=== PATIENT | male | born 1945 | race African-American/Black ===

== ENCOUNTER 2016-08-02 01:49 | Emergency (ER) | payer MEDICARE, MEDICAID ==
[~2016-08-02] VITALS: Ht 172.7 cm; Wt 56.0 kg
[~2016-08-02 01:49] MED LIST: NIFE60TA58 PO
[2016-08-02 01:54] VITALS: BP 165/112; PULSE 106; RESP 18; TEMP 98.6; O2SAT 99
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
[2016-08-02] MEDS ORDERED: ACETAMINOPHEN 325 MG TAB PO ONE (05:30)
[2016-08-02 06:22] VITALS: BP 140/83; TEMP 97.5
--- NOTE | 2016-08-02 07:51 | EKG ---
Date Performed: 08/02/2016 Time Performed: 05:34:11 PTAGE: 71 years EKG: SINUS TACHYCARDIA WITH SHORT OH INTERVAL ABNORMAL RHYTHM ECG NO PREVIOUS TRACING DOCTOR: Lee Sapp Interpretating Date/Time 08/02/2016 07:50:09
== END 2016-08-02 06:56 | disposition home or self-care (01) ==
LOC: NEPC 01:49 → NEDAMB 06:56
DX: F10.129 Alcohol abuse with intoxication, unspecified (principal); F17.200 Nicotine dependence, unspecified, uncomplicated; R00.0 Tachycardia, unspecified
CPT/HCPCS: 93005; 99283

== ENCOUNTER 2016-09-20 05:04 | Inpatient (IN) | payer MEDICARE, MEDICAID ==
[2016-09-20] VITALS (8 sets, daily range): BP systolic 123–196; BP diastolic 72–109; PULSE 72–95; RESP 18–23; TEMP 97.7–98.1; O2SAT 99–100
[~2016-09-20] VITALS: Ht 170.2 cm; Wt 53.6 kg
[2016-09-20] MEDS ORDERED: water pill (05:28)
[2016-09-20] MEDS ORDERED: TIZA4TAB PO (05:28)
--- NOTE | 2016-09-20 05:45 | PD ---
HPI Chief Complaint: Respiratory Symptoms Time Seen by Provider: 05:45 Travel History International Travel<30 days: No Contact w/Intl Traveler<30days: No Traveled to known affect area: No History of Present Illness HPI The patient is a 71 year old male who presents to the [facility] emergency department with a history of being brought in by ambulance services related to reports of shortness of breath. He reports that he does have chronic dyspnea on exertion, however it was worse this evening. The patient additionally reports that he has chronic neck pain and chronic abdominal pain. The patient port that he is in pain management for this. He reports that his abdominal pain is related to prior hernia repairs done last year. The patient reports that the pain has been worse recently. The patient reports that the pain is present in bilateral lower quadrants of the abdomen in the suprapubic area. The patient reports that over the last week he said nausea and vomiting associated with this. He reports that he has been vomiting 2-3 times per day. He denies having any diarrhea. He reports that he last moved his bowels earlier today. He denies having any blood in his stool or black or tarry stools. He reports that his neck pain is related to degenerative disc disease. He reports that he is normally on Lortab 10 for this, however he is currently out. He is unable to explain why he is out of the medication. The patient reports that he does have a history of COPD. The patient continues to smoke a pack of cigarettes per day. He reports that he drinks a half of a quart of liquor daily to help with his chronic neck and abdominal pain. On review of systems, the patient denies any recent worsening cough or congestion, fevers neck pain, chest pain, or neurologic symptoms. The patient incidentally on review of systems also reports that he has difficulty urinating that is chronic. He reports having hesitancy. The patient's primary care physician is Dr. Duncan. [facility] Past Medical History Narrative Medical The patient's past medical history is significant for hypertension, hyperlipidemia, COPD, tobacco abuse, alcohol abuse, history of chronic neck pain , history of chronic abdominal pain. Arthritis: No Asthma: No Autoimmune Disease: No Blood Disorders: No Anxiety: No Depression: No Cancer: No Cardiovascular Problems: Yes High Cholesterol: Yes Chemotherapy: No Chest Pain: No Congestive Heart Failure: No COPD: No Cerebrovascular Accident: No Diabetes: No Diminished Hearing: No Endocrine: No Gastrointestinal Disorders: Yes GERD: Yes Genitourinary: Yes Headaches: No Hiatal Hernia: No Hypertension: Yes Immune Disorder: No Inguinal Hernia: Yes Implanted Vascular Access Dvce: No Kidney Stones: No Musculoskeletal: No Neurologic: Yes Psychiatric: No Reproductive: No Respiratory: No Immunizations Current: No Migraines: No Radiation Therapy: No Renal Failure: No Seizures: No Sickle Cell Disease: No Sleep Apnea: No Thyroid Disease: No Ulcer: No Past Surgical History Narrative Surgical The patient's past surgical history is significant for vocal cord growth removal , prostate biopsy, hernia repair. Abdominal Surgery: Yes (HENIA REPAIR) AICD: No Arteriovenous Shunt: No Cardiac Surgery: No Ear Surgery: No Endocrine Surgery: No Eye Surgery: No Genitourinary Surgery: Yes (PROSTATE BIOPSY) Gynecologic Surgery: No Insulin Pump: No Joint Replacement: No Neurologic Surgery: No Oral Surgery: No Pacemaker: No Thoracic Surgery: No Other Surgery: Yes (GROWTH REMOVED OFF VOCAL CORD) Social History Alcohol Use: Yes (1/4 quart of liquor per day) Tobacco Use: Yes (one pack per day) Substance Use: No Allergies-Medications (Allergen,Severity, Reaction): Coded Allergies: No Known Allergies (Verified , 09/20/16) Reported Meds & Prescriptions Reported Meds & Active Scripts Active Reported [water pill] Tizanidine (Tizanidine HCl) 4 Mg Tab 4 Mg PO HS PRN Nifedipine ER 24 HR (Nifedipine) 60 Mg Tab 60 Mg PO BID Review of Systems Except as stated in HPI: all other systems reviewed are Neg General / Constitutional: No: Fever Eyes: No: Visual changes HENT: Positive: Congestion, Neck Pain (chronic neck pain), No: Headaches, Neck Stiffness Cardiovascular: Positive: Dyspnea on exertion, No: Chest Pain or Discomfort Respiratory: Positive: Cough, Shortness of Breath Gastrointestinal: Positive: Nausea, Vomiting, Diarrhea, Abdominal Pain ( chronic abdominal pain) Genitourinary: Positive: Hesitancy, No: Dysuria Musculoskeletal: No: Pain Skin: No Rash Neurologic: No: Weakness, Focal Abnormalities, Change in Mentation, Slurred Speech Psychiatric: No: Depression Endocrine: No: Polydipsia Hematologic/Lymphatic: No: Easy Bruising Physical Exam Narrative General: The patient is a well-developed thin appearing male in no acute distress. Head and Neck exam: Head is normocephalic atraumatic. Eyes: EOMI, pupils are equal round and reactive to light. Nose: Midline septum with pink mucous membranes Mouth: Dentition unremarkable. Moist mucus membranes. Posterior oropharynx is not erythematous. No tonsillar hypertrophy. Uvula midline. Airway patent. Neck: No palpable lymphadenopathy. No nuchal rigidity. No thyromegaly. No spinous process tenderness to palpation. No step-off or crepitus. No erythema or ecchymosis. Cardiovascular: Regular rate and rhythm without murmurs, gallops, or rubs. Lungs: Clear to auscultation bilaterally. No wheezes, rhonchi, or rales. Abdomen: Soft, with tenderness on palpation overlying the suprapubic area and bilateral lower quadrants of the abdomen. No guarding, rebound, or rigidity. No tenderness on palpation of McBurney's point. Negative Kirkpatrick's sign. Normal bowel sounds are audible. Extremities: No clubbing, cyanosis, or edema. 2+ pulses in all 4 extremities. No calf tenderness on palpation. Back: No costovertebral angle tenderness to palpation. Neurologic Exam: Grossly nonfocal. Skin Exam: No rash noted. Intact skin that is warm and dry. Data Data Last Documented VS Vital Signs Date Time Temp Pulse Resp B/P Pulse Ox O2 Delivery O2 Flow Rate FiO2 09/20/16 06:27 100 Nasal Cannula 2 09/20/16 05:08 97.9 95 23 161/96 Orders Complete Blood Count With Diff (09/20/16 06:07) Comprehensive Metabolic Panel (09/20/16 06:07) B-Type Natriuretic Peptide (09/20/16 06:07) Act Partial Throm Time (Ptt) (09/20/16 06:07) Prothrombin Time / Inr (Pt) (09/20/16 06:07) Magnesium (Mg) (09/20/16 06:07) Ckmb (Isoenzyme) Profile (09/20/16 06:07) Troponin I (09/20/16 06:07) Arterial Blood Gas (Abg) (09/20/16 06:07) Urinalysis - C+S If Indicated (09/20/16 06:07) Iv Access Insert/Monitor (09/20/16 06:07) Electrocardiogram (09/20/16 06:07) Ecg Monitoring (09/20/16 06:07) Oximetry (09/20/16 06:07) Oxygen Administration (09/20/16 06:07) Chest, Single Ap (09/20/16 06:07) Sodium Chloride 0.9% Flush (Ns Flush) (09/20/16 06:15) Albuterol-Ipratropium Neb (Duoneb Neb) (09/20/16 06:15) Ct Abd/Pel W Iv Contrast(Rout) (09/20/16 07:00) CKMB (09/20/16 06:20) CKMB% (09/20/16 06:20) Sodium Chlorid 0.9% 500 Ml Inj (Ns 500 M (09/20/16 07:30) Morphine Inj (Morphine Inj) (09/20/16 07:30) Ondansetron Inj (Zofran Inj) (09/20/16 07:30) Thiamine Inj (Thiamine Inj) (09/20/16 07:30) Potassium Chloride (Kcl) (09/20/16 07:30) Labs Laboratory Tests Test 09/20/16 09/20/16 06:20 06:30 White Blood Count 6.2 TH/MM3 Red Blood Count 2.56 MIL/MM3 Hemoglobin 8.8 GM/DL Hematocrit 25.7 % Mean Corpuscular Volume 100.2 FL Mean Corpuscular Hemoglobin 34.4 PG Mean Corpuscular Hemoglobin 34.3 % Concent Red Cell Distribution Width 15.6 % Platelet Count 112 TH/MM3 Mean Platelet Volume 9.3 FL Neutrophils (%) (Auto) 47.6 % Lymphocytes (%) (Auto) 38.6 % Monocytes (%) (Auto) 11.3 % Eosinophils (%) (Auto) 1.7 % Basophils (%) (Auto) 0.8 % Neutrophils # (Auto) 2.9 TH/MM3 Lymphocytes # (Auto) 2.4 TH/MM3 Monocytes # (Auto) 0.7 TH/MM3 Eosinophils # (Auto) 0.1 TH/MM3 Basophils # (Auto) 0.0 TH/MM3 CBC Comment AUTO DIFF Differential Comment AUTO DIFF CONFIRMED Prothrombin Time 11.6 SEC Prothromb Time International 1.0 RATIO Ratio Activated Partial 24.0 SEC Thromboplast Time Urine Color YELLOW Urine Turbidity CLEAR Urine pH 6.0 Urine Specific [place] 1.009 Urine Protein TRACE mg/dL Urine Glucose (UA) NEG mg/dL Urine Ketones NEG mg/dL Urine Occult Blood NEG Urine Nitrite NEG Urine Bilirubin NEG Urine Urobilinogen LESS THAN 2.0 MG/DL Urine Leukocyte Esterase NEG Urine RBC LESS THAN 1 /hpf Urine WBC 1 /hpf Microscopic Urinalysis Comment CULT NOT INDICATED Sodium Level 147 MEQ/L Potassium Level 2.9 MEQ/L Chloride Level 117 MEQ/L Carbon Dioxide Level 20.8 MEQ/L Anion Gap 9 MEQ/L Blood Urea Nitrogen 13 MG/DL Creatinine 1.07 MG/DL Estimat Glomerular Filtration 83 ML/MIN Rate Random Glucose 62 MG/DL Calcium Level 6.6 MG/DL Protein Corrected Calcium 7.7 MG/DL Magnesium Level 0.8 MG/DL Total Bilirubin 0.2 MG/DL Aspartate Amino Transf 69 U/L (AST/SGOT) Alanine Aminotransferase 32 U/L (ALT/SGPT) Alkaline Phosphatase 61 U/L Total Creatine Kinase 107 U/L Creatine Kinase MB LESS THAN 0.5 NG/ML Troponin I LESS THAN 0.02 NG/ML B-Type Natriuretic Peptide 8 PG/ML Total Protein 5.0 GM/DL Albumin 2.3 GM/DL Blood Gas Puncture Site RT RADIAL Blood Gas Patient Temperature 98.6 Blood Gas HCO3 23 mmol/L Blood Gas Base Excess -1.2 mmol/L Blood Gas Oxygen Saturation 94 % Arterial Blood pH 7.43 Arterial Blood Partial 35 mmHg Pressure CO2 Arterial Blood Partial 98 mmHG Pressure O2 Arterial Blood Oxygen Content 13.4 Vol % Arterial Blood 3.8 % Carboxyhemoglobin Arterial Blood Methemoglobin 0.5 % Blood Gas Hemoglobin 10.1 G/DL Oxygen Delivery Device ROOM AIR Blood Gas Inspired Oxygen 21 % [facility] Medical Decision Making Medical Screen Exam Complete: Yes Emergency Medical Condition: Yes Medical Record Reviewed: Yes Interpretation(s) Last Impressions Chest X-Ray 09/20/16 0607 Signed Impressions: Service Date/Time: Tuesday, September 20, 2016 06:16 - CONCLUSION: Emphysematous changes of the lungs. Otherwise negative exam. Elizabeth Cruz MD Differential Diagnosis COPD exacerbation, versus pneumonia, versus diverticulitis, versus urinary tract infection, versus prostatitis, versus benign prostatic hypertrophy, versus exacerbation of chronic pain. Narrative Course During the course of the patients emergency department visit, the patients history, examination, and differential diagnosis were reviewed with the patient. The patient had IV access obtained and blood work sent for analysis. The patient was placed on a satellite project site monitor with oximetry and blood pressure monitoring. An ECG was done on arrival. The patient's ECG shows a sinus rhythm , heart rate of 86, no acute ST segment elevation or depression, left axis deviation is noted, QRS duration 95 ms, QTC 401 ms. An ABG was ordered. The patient was initially provided a DuoNeb 1. The patient was given morphine for pain, Zofran for nausea, normal saline IV fluids, thiamine 100 mg IV. The patients laboratory studies were reviewed and remarkable for white count of 6.2, hemoglobin 8.8, platelets 112 with 11.3 monocytes, ABG reveals a pH of 7.43, PCO2 35, PO2 98, carboxyhemoglobin 3.8. Radiology studies were reviewed and remarkable for a chest x-ray that shows emphysematous changes of the lung, otherwise unremarkable. The patient's electrolyte panel, urinalysis, and CT scan of the abdomen and pelvis are pending at the conclusion of my shift. The patient's case was checked out to the oncoming emergency physician to disposition the patient based on the conclusion of this workup. Diagnosis Primary Impression: Shortness of breath Additional Impression: Abdominal pain Qualified Code: R10.30 - Lower abdominal pain Twila Fox MD Sep 20, 2016 05:45
[2016-09-20] MEDS ORDERED: SODIUM CHLORIDE 0.9% FLUSH 10 ML FLUSH IVF PRN (06:15)
[2016-09-20] MEDS ORDERED: RESP: ALBUTEROL 2.5 MG/IPRATROPIUM 0.5 MG NEB (SCH) INH ONE (06:15)
[2016-09-20 06:48] LABS: BLOOD GAS BASE EXCESS -1.2 mmol/L (-2-2); BLOOD GAS CARBOXYHEMOGLOBIN 3.8 % (0-4); BLOOD GAS HCO3 23 mmol/L (22-26); BLOOD GAS METHEMOGLOBIN 0.5 % (0-2); BLOOD GAS O2 HGB SATURATION 94 % (90-100); BLOOD GAS OXYGEN CONTENT 13.4 Vol % (12.0-20.0); BLOOD GAS PCO2 35 mmHg (38-42); BLOOD GAS PO2 98 mmHG (61-120); BLOOD GAS TOTAL HGB 10.1 G/DL (12.0-16.0); CRITICAL VALUE NO; DRAW SITE RT RADIAL; FIO2 21 %; NUMBER OF ARTERIAL PUNCTURES 1; OXYGEN DEVICE ROOM AIR; STAT YES; TEMP CORR TO 98.6; ULNAR PULSE PRESENT
[2016-09-20 06:52] LABS: AUTOMATED NEUTROPHIL # 2.9 TH/MM3 (1.8-7.7); BASOPHIL % 0.8 % (0.0-2.0); EOSINOPHIL # 0.1 TH/MM3 (0-0.4); EOSINOPHIL % 1.7 % (0.0-4.0); HEMATOCRIT 25.7 % (39.0-51.0); LYMPH % 38.6 % (9.0-44.0); LYMPHOCYTE # 2.4 TH/MM3 (1.0-4.8); MEAN CELL VOLUME 100.2 FL (80.0-100.0); MEAN CORPUSCULAR HEMOGLOBIN 34.4 PG (27.0-34.0); MEAN CORPUSCULAR HGB CONC 34.3 % (32.0-36.0); MONO % 11.3 % (0.0-8.0); NEUT % 47.6 % (16.0-70.0); PLATELET COUNT 112 TH/MM3 (150-450); RED BLOOD COUNT 2.56 MIL/MM3 (4.50-5.90); RED CELL DISTRIBUTION WIDTH 15.6 % (11.6-17.2); WHITE BLOOD COUNT 6.2 TH/MM3 (4.0-11.0)
[2016-09-20 06:55] LABS: HEMO FLAGS AUTO DIFF
[2016-09-20 06:59] LABS: PROTHROMBIN TIME - PATIENT 11.6 SEC (9.8-11.6)
--- NOTE | 2016-09-20 06:59 | RADRPT ---
EXAM DATE/TIME: 09/20/2016 06:16 [facility] COMPARISON: CHEST SINGLE AP, December 29, 2015, 12:52. INDICATIONS : Short of breath. MEDICAL HISTORY : None. SURGICAL HISTORY : None. ENCOUNTER: Initial ACUITY: 1 day PAIN SCORE: 0/10 LOCATION: Bilateral chest FINDINGS: Single upright view of the chest is performed. The lungs are hyperinflated but clear. Heart size is n ormal. Pulmonary vasculature is normal. Osseous structures are grossly unremarkable. CONCLUSION: Emphysematous changes of the lungs. Otherwise negative exam. Elizabeth Cruz MD on September 20, 2016 at 6:56 Board Certified Radiologist. This report was verified electronically.
[2016-09-20 07:02] LABS: BLOOD, URINE NEG (NEG); GLUCOSE,URINE NEG (NEG); KETONE, URINE NEG (NEG); NITRITE,URINE NEG (NEG); URINE COLOR YELLOW (YELLW/STRAW)
[2016-09-20 07:04] LABS: COMMENT (UR) CULT NOT INDICATED; CULTURE IF INDICATED CULT NOT INDICATED
[2016-09-20 07:19] LABS: ANION GAP 9 MEQ/L (5-15); AST (GOT) 69 U/L (15-37); BICARBONATE 20.8 MEQ/L (21.0-32.0); BLOOD UREA NITROGEN 13 MG/DL (7-18); CHLORIDE 117 MEQ/L (98-107); GLOMERULAR FILTRATION RATE 83 ML/MIN (>89); MAGNESIUM 0.8 MG/DL (1.5-2.5); SODIUM (NA) 147 MEQ/L (136-145)
[2016-09-20 07:23] LABS: ALKALINE PHOSPHATASE 61 U/L (45-117); ALT (GPT) 32 U/L (12-78); CALCIUM-PROTEIN CORRECTED 7.7 MG/DL (8.5-10.1); CREATINE KINASE 107 U/L (39-308); TOTAL BILIRUBIN ADULT 0.2 MG/DL (0.2-1.0)
[2016-09-20 07:26] LABS: POTASSIUM 2.9 MEQ/L (3.5-5.1)
[2016-09-20] MEDS ORDERED: POTASSIUM CHLORIDE 20 MEQ CONTROLLED RELEASE TAB PO ONE (07:30)
[2016-09-20] MEDS ORDERED: SODIUM CHLORID 0.9% 500 ML INJ 500 ML IV ONE (07:30)
[2016-09-20] MEDS ORDERED: MORPHINE SULFATE 4 MG/ML INJ IV PUSH ONE (07:30)
[2016-09-20] MEDS ORDERED: THIAMINE INJ 100 MG in SODIUM CHLORIDE 0.9% INJ 100 ML IV ONE (07:30)
[2016-09-20] MEDS ORDERED: ONDANSETRON HCL 4 MG/2 ML VIAL IV PUSH ONE (07:30)
[2016-09-20 07:40] LABS: CKMB LESS THAN 0.5 NG/ML (0.5-3.6)
[2016-09-20 07:59] LABS: SCAN/DIFF AUTO DIFF CONFIRMED
[2016-09-20] MEDS ORDERED: SODIUM CHLOR 0.9% 1000 ML INJ 1,000 ML IV ONE (08:45)
--- NOTE | 2016-09-20 09:04 | EKG ---
Date Performed: 09/20/2016 Time Performed: 05:11:45 PTAGE: 71 years EKG: Sinus rhythm MARKED LEFT AXIS DEVIATION ABNORMAL ECG NO PREVIOUS TRACING DOCTOR: Lorenzo Sanchez Interpretating Date/Time 09/20/2016 09:02:44
[2016-09-20] MEDS ORDERED: IOHEXOL 350 MG/ML 10 ML VIAL (for RAD DIAG) IV ONE (09:38)
--- NOTE | 2016-09-20 09:55 | RADRPT ---
EXAM DATE/TIME: 09/20/2016 09:12 [facility] COMPARISON: CT ABDOMEN & PELVIS W CONTRAST, October 29, 2014, 22:18. INDICATIONS : Bilateral lower quadrant and suprapubic pain, difficulty urinating. IV CONTRAST: 85 cc Omnipaque 350 (iohexol) IV ORAL CONTRAST: No oral contrast ingested. RADIATION DOSE: 9.96 CTDIvol (mGy) MEDICAL HISTORY : Hypertension. Hernia, umbilical. Gastroesophageal reflux disease.Liver disease. SURGICAL HISTORY : Umbilical hernia repair. ENCOUNTER: Initial ACUITY: 1 month PAIN SCALE: 5/10 LOCATION: Bilateral lower quadrant TECHNIQUE: Volumetric scanning of the abdomen and pelvis was performed. Using automated exposure control and ad justment of the mA and/or kV according to patient size, radiation dose was kept as low as reasonably achievable to obtain optimal diagnostic quality images. DICOM format image data is available electro nically for review and comparison. FINDINGS: The lung base is are clear. There is no pericardial effusion. The liver, spleen, pancreas and adrenals are unremarkable. There are small calculi in the right kidney. There is an 1 cm cyst in the left kidney. There is no evidence for polyarthritis. Moderate vascular calcifications are noted There are mild laboratory changes around the cecum and descending colon with some bowel wall thickeni ng the nonspecific fashion. Diverticuli are present in the sigmoid colon without diverticulitis Hernia repair repair is seen in the right inguinal region There is no free fluid. Prominent prostate is evident. Review of bone windows reveals only degenerative changes. CONCLUSION: 1. Minimal bowel wall thickening and subtle inflammatory changes descending colon 2. There is no diverticulitis 3. Bilateral renal stones without hydronephrosis or pyelonephritis. Jean Ko MD FACR on September 20, 2016 at 9:49 Board Certified Radiologist. This report was verified electronically.
--- NOTE | 2016-09-20 10:06 | PD ---
Physical Exam Date Seen by Provider: Sep 20, 2016 Time Seen by Provider: 10:03 Narrative Patient was signed out to me by the previous ER physician for failure to thrive , abdominal pain. Please refer to her history and physical for further details. Blood test results were suggestive of hyponatremic dehydration and anemia. His sodium and potassium was tried to be corrected. Patient also has low calcium and magnesium which will be replaced. There was a CT scan of his abdomen ordered since he was complaining of abdominal pain. The report just came back and shows some small bowel thickening but otherwise negative. Patient will be admitted for dehydration, failure to thrive. Awaiting for the hospitalist to call back. Data Data Last Documented VS Vital Signs Date Time Temp Pulse Resp B/P Pulse Ox O2 Delivery O2 Flow Rate FiO2 09/20/16 06:27 100 Nasal Cannula 2 09/20/16 05:08 97.9 95 23 161/96 Orders Complete Blood Count With Diff (09/20/16 06:07) Comprehensive Metabolic Panel (09/20/16 06:07) B-Type Natriuretic Peptide (09/20/16 06:07) Act Partial Throm Time (Ptt) (09/20/16 06:07) Prothrombin Time / Inr (Pt) (09/20/16 06:07) Magnesium (Mg) (09/20/16 06:07) Ckmb (Isoenzyme) Profile (09/20/16 06:07) Troponin I (09/20/16 06:07) Arterial Blood Gas (Abg) (09/20/16 06:07) Urinalysis - C+S If Indicated (09/20/16 06:07) Iv Access Insert/Monitor (09/20/16 06:07) Electrocardiogram (09/20/16 06:07) Ecg Monitoring (09/20/16 06:07) Oximetry (09/20/16 06:07) Oxygen Administration (09/20/16 06:07) Chest, Single Ap (09/20/16 06:07) Sodium Chloride 0.9% Flush (Ns Flush) (09/20/16 06:15) Albuterol-Ipratropium Neb (Duoneb Neb) (09/20/16 06:15) Ct Abd/Pel W Iv Contrast(Rout) (09/20/16 07:00) CKMB (09/20/16 06:20) CKMB% (09/20/16 06:20) Sodium Chlorid 0.9% 500 Ml Inj (Ns 500 M (09/20/16 07:30) Morphine Inj (Morphine Inj) (09/20/16 07:30) Ondansetron Inj (Zofran Inj) (09/20/16 07:30) Thiamine Inj (Thiamine Inj) (09/20/16 07:30) Potassium Chloride (Kcl) (09/20/16 07:30) Sodium Chlor 0.9% 1000 Ml Inj (Ns 1000 M (09/20/16 08:45) Iohexol 350 Inj (Omnipaque 350 Inj) (09/20/16 09:38) Calcium Chloride Inj (Calcium Chloride I (09/20/16 10:15) Magnesium Sulfate 1 Gm Premix (Magnesium (09/20/16 10:15) Admit Order (Ed Use Only) (09/20/16 10:39) Blood Glucose (09/20/16 10:39) Vital Signs (Adult) MARGOTH.Q4H (09/20/16 10:36) Resp Oxygen [place] C Titrat 1-4 L (09/20/16 ) Basic Metabolic Panel (Bmp) (09/20/16 10:36) Occult Blood (Hemoccult) Stool (09/20/16 10:36) Dext 5%-Nacl 0.9% 1000 Ml Inj (D5w-Ns 10 (09/20/16 10:45) Complete Blood Count With Diff (09/21/16 06:00) Basic Metabolic Panel (Bmp) (09/21/16 06:00) Iron/Tibc Profile (09/20/16 10:36) Ferritin (09/20/16 10:36) Vitamin B12 (09/20/16 10:36) Folate, Serum (09/20/16 10:36) Albuterol-Ipratropium Neb (Duoneb Neb) (09/20/16 10:45) Labs Laboratory Tests Test 09/20/16 09/20/16 06:20 06:30 White Blood Count 6.2 TH/MM3 Red Blood Count 2.56 MIL/MM3 Hemoglobin 8.8 GM/DL Hematocrit 25.7 % Mean Corpuscular Volume 100.2 FL Mean Corpuscular Hemoglobin 34.4 PG Mean Corpuscular Hemoglobin 34.3 % Concent Red Cell Distribution Width 15.6 % Platelet Count 112 TH/MM3 Mean Platelet Volume 9.3 FL Neutrophils (%) (Auto) 47.6 % Lymphocytes (%) (Auto) 38.6 % Monocytes (%) (Auto) 11.3 % Eosinophils (%) (Auto) 1.7 % Basophils (%) (Auto) 0.8 % Neutrophils # (Auto) 2.9 TH/MM3 Lymphocytes # (Auto) 2.4 TH/MM3 Monocytes # (Auto) 0.7 TH/MM3 Eosinophils # (Auto) 0.1 TH/MM3 Basophils # (Auto) 0.0 TH/MM3 CBC Comment AUTO DIFF Differential Comment AUTO DIFF CONFIRMED Prothrombin Time 11.6 SEC Prothromb Time International 1.0 RATIO Ratio Activated Partial 24.0 SEC Thromboplast Time Urine Color YELLOW Urine Turbidity CLEAR Urine pH 6.0 Urine Specific [place] 1.009 Urine Protein TRACE mg/dL Urine Glucose (UA) NEG mg/dL Urine Ketones NEG mg/dL Urine Occult Blood NEG Urine Nitrite NEG Urine Bilirubin NEG Urine Urobilinogen LESS THAN 2.0 MG/DL Urine Leukocyte Esterase NEG Urine RBC LESS THAN 1 /hpf Urine WBC 1 /hpf Microscopic Urinalysis Comment CULT NOT INDICATED Sodium Level 147 MEQ/L Potassium Level 2.9 MEQ/L Chloride Level 117 MEQ/L Carbon Dioxide Level 20.8 MEQ/L Anion Gap 9 MEQ/L Blood Urea Nitrogen 13 MG/DL Creatinine 1.07 MG/DL Estimat Glomerular Filtration 83 ML/MIN Rate Random Glucose 62 MG/DL Calcium Level 6.6 MG/DL Protein Corrected Calcium 7.7 MG/DL Magnesium Level 0.8 MG/DL Total Bilirubin 0.2 MG/DL Aspartate Amino Transf 69 U/L (AST/SGOT) Alanine Aminotransferase 32 U/L (ALT/SGPT) Alkaline Phosphatase 61 U/L Total Creatine Kinase 107 U/L Creatine Kinase MB LESS THAN 0.5 NG/ML Troponin I LESS THAN 0.02 NG/ML B-Type Natriuretic Peptide 8 PG/ML Total Protein 5.0 GM/DL Albumin 2.3 GM/DL Blood Gas Puncture Site RT RADIAL Blood Gas Patient Temperature 98.6 Blood Gas HCO3 23 mmol/L Blood Gas Base Excess -1.2 mmol/L Blood Gas Oxygen Saturation 94 % Arterial Blood pH 7.43 Arterial Blood Partial 35 mmHg Pressure CO2 Arterial Blood Partial 98 mmHG Pressure O2 Arterial Blood Oxygen Content 13.4 Vol % Arterial Blood 3.8 % Carboxyhemoglobin Arterial Blood Methemoglobin 0.5 % Blood Gas Hemoglobin 10.1 G/DL Oxygen Delivery Device ROOM AIR Blood Gas Inspired Oxygen 21 % MDM Supervised Visit with AMMY: No Diagnosis Primary Impression: Shortness of breath Additional Impressions: Abdominal pain Qualified Code: R10.30 - Lower abdominal pain Failure to thrive in adult Dehydration with hypernatremia Hypomagnesemia Hypocalcemia Anemia Qualified Code: D64.9 - Anemia, unspecified type Admitting Information Admitting Physician Requests: Admit Scripts Metronidazole (Flagyl)500 Mg Iat106 Mg PO TID 7 Days Ref 0 Prov:Melvin Hill MD 09/23/16 Pantoprazole (Protonix)40 Mg Tab40 Mg PO DAILY #30 TAB Ref 0 Prov:Melvin Hill MD 09/23/16 Walker Rolling/GetGo 1 Mis Mis #1 Ea .route As Directed Prov:Melvin Hill MD 09/22/16 Anuradha Hollsi MD Sep 20, 2016 10:06
[2016-09-20] MEDS ORDERED: CALCIUM CHLORIDE INJ 1 GM in DEXTROSE 5% IN WATER 100ML INJ 100 ML IV ONE ×2 (10:15)
[2016-09-20] MEDS: MAGNESIUM SULFATE 1 GM PREMIX 100 ML IV SCH ×2 (10:25→12:28)
[2016-09-20] MEDS ORDERED: RESP: ALBUTEROL 2.5 MG/IPRATROPIUM 0.5 MG NEB (PRN) NEB (10:45)
--- NOTE | 2016-09-20 12:01 | HHI.HP ---
[facility] Primary Care Physician Unknown Admission Diagnosis failure to thrive, hyponatremic dehydration, multiple electrolyte Diagnoses: Chief Complaint: abdominal pain Travel History International Travel<30 Days: No Contact w/Intl Traveler <30 Da: No Traveled to Known Affected Are: No History of Present Illness Written by Kandice Martinez, acting as scribe for Dr. Hill on 09/20/16 at 12:06. This is a 71 year male patient with a past medical history which includes hypertension, hyperlipidemia, COPD, tobacco abuse, alcohol abuse, history of chronic neck pain follows with pain management, history of chronic abdominal pain. Patient complains of, "real bad abdominal pain." Patient reports he had hernia surgery about 1.5 years ago and since then has had abdominal pain. Patient reports that the pain is worse, "here lately," patient unable to give exact time at bedside report about 1.5 weeks. Patient describes the pain as constant but waxes and wanes in intensity. The patient indicates that the pain is located in bilateral lower quadrants of the abdomen in the suprapubic area. Pain worse with lifting. reports associated nausea and vomiting over the past 1.5 weeks. Vomiting as much as 2-3 times per day. Patient reports specs of blood mixed in the vomitus material. Stool varies between constipation and diarrhea. Patient endorses black colored stool about 1 week ago. Patient has never had a EGD or colonoscopy. Patient also reports difficulty swallowing described as feeling of swelling in the inside of his throat. Difficulty swallowing occurs with both liquids and solids and has been going on for 1-2 months. Patient has lost 5- 10 pounds over the past month. He reports PO intake is limited by his abdominal pain and difficult swallowing. Patient also reports shortness of breath which appears to be at his baseline due to his chronic COPD. Patient also c/o of chronic neck and back pain for which he see pain management as an outpatient, but is upset that they do not give him the, "meds he needs." Review of Systems Except as stated in HPI: all other systems reviewed are Neg Past Family Social History Past Medical History hypertension, hyperlipidemia, COPD, tobacco abuse, alcohol abuse, history of chronic neck pain, history of chronic abdominal pain. Past Surgical History vocal cord growth removal, prostate biopsy, hernia repair. Reported Medications [water pill] Tizanidine (Tizanidine HCl) 4 Mg Tab 4 Mg PO HS PRN Nifedipine ER 24 HR (Nifedipine) 60 Mg Tab 60 Mg PO BID Allergies: Coded Allergies: No Known Allergies (Verified , 09/20/16) Active Ordered Medications Current Medications Medications (Trade) Dose Ordered Sig/Fernanda Route Start Time Stop Time Status Last Admin Sodium Chloride 2 ml 2 ml UNSCH PRN IVF 09/20/16 06:15 Magnesium Sulfate/ Dextrose 100 ml @ 100 mls/hr Q1H IV 09/20/16 10:15 09/20/16 12:14 09/20/16 10:25 (D5W-NS 1000 ml Inj) 1,000 ml @ 100 mls/hr Q10H IV 09/20/16 10:45 Family History denies family medical history including cancers, heart disease or DM. Social History Alcohol Use: Yes (1/2 pint of Vodka per day) "I just drink till I fallout." Last drink last night Tobacco Use: Yes (one pack per day) Substance Use: No Physical Exam Vital Signs Vital Signs Date Time Temp Pulse Resp B/P Pulse Ox O2 Delivery O2 Flow Rate FiO2 09/20/16 11:29 99 21 09/20/16 06:27 100 Nasal Cannula 2 09/20/16 06:27 100 Room Air 09/20/16 05:15 100 Nasal Cannula 2 09/20/16 05:08 97.9 95 23 161/96 100 Physical Exam GENERAL: This is a thin 71 year old male patient, in no apparent distress. SKIN: No rashes, ecchymoses or lesions. Cool and dry. HEAD: Atraumatic. Normocephalic. No temporal or scalp tenderness. EYES: Extraocular motions intact. No scleral icterus. No injection or drainage. ENT: Nose without bleeding, purulent drainage or septal hematoma. Throat without erythema, tonsillar hypertrophy or exudate. Uvula midline. Airway patent. NECK: Trachea midline. No JVD or lymphadenopathy. Supple, nontender, no meningeal signs. CARDIOVASCULAR: Regular rate and rhythm without murmurs, gallops, or rubs. RESPIRATORY: Diminished bilateral bases no wheezing GASTROINTESTINAL: Abdomen soft, diffusely tender to palpation with no rebound tenderness, nondistended. MUSCULOSKELETAL: Extremities without clubbing, cyanosis, or edema. No joint tenderness, effusion, or edema noted. No calf tenderness. Negative Homans sign bilaterally. NEUROLOGICAL: Awake and alert. No focal deficits appreciated. Motor and sensory grossly within normal limits. Five out of 5 muscle strength in all muscle groups. Normal speech. Laboratory Laboratory Tests Test 09/20/16 09/20/16 06:20 06:30 White Blood Count 6.2 Red Blood Count 2.56 Hemoglobin 8.8 Hematocrit 25.7 Mean Corpuscular Volume 100.2 Mean Corpuscular Hemoglobin 34.4 Mean Corpuscular Hemoglobin 34.3 Concent Red Cell Distribution Width 15.6 Platelet Count 112 Mean Platelet Volume 9.3 Neutrophils (%) (Auto) 47.6 Lymphocytes (%) (Auto) 38.6 Monocytes (%) (Auto) 11.3 Eosinophils (%) (Auto) 1.7 Basophils (%) (Auto) 0.8 Neutrophils # (Auto) 2.9 Lymphocytes # (Auto) 2.4 Monocytes # (Auto) 0.7 Eosinophils # (Auto) 0.1 Basophils # (Auto) 0.0 CBC Comment AUTO DIFF Differential Comment AUTO DIFF CONFIRMED Prothrombin Time 11.6 Prothromb Time International 1.0 Ratio Activated Partial 24.0 Thromboplast Time Urine Color YELLOW Urine Turbidity CLEAR Urine pH 6.0 Urine Specific [place] 1.009 Urine Protein TRACE Urine Glucose (UA) NEG Urine Ketones NEG Urine Occult Blood NEG Urine Nitrite NEG Urine Bilirubin NEG Urine Urobilinogen LESS THAN 2.0 Urine Leukocyte Esterase NEG Urine RBC LESS THAN 1 Urine WBC 1 Microscopic Urinalysis Comment CULT NOT INDICATED Sodium Level 147 Potassium Level 2.9 Chloride Level 117 Carbon Dioxide Level 20.8 Anion Gap 9 Blood Urea Nitrogen 13 Creatinine 1.07 Estimat Glomerular Filtration 83 Rate Random Glucose 62 Calcium Level 6.6 Protein Corrected Calcium 7.7 Magnesium Level 0.8 Total Bilirubin 0.2 Aspartate Amino Transf 69 (AST/SGOT) Alanine Aminotransferase 32 (ALT/SGPT) Alkaline Phosphatase 61 Total Creatine Kinase 107 Creatine Kinase MB LESS THAN 0.5 Troponin I LESS THAN 0.02 B-Type Natriuretic Peptide 8 Total Protein 5.0 Albumin 2.3 Blood Gas Puncture Site RT RADIAL Blood Gas Patient Temperature 98.6 Blood Gas HCO3 23 Blood Gas Base Excess -1.2 Blood Gas Oxygen Saturation 94 Arterial Blood pH 7.43 Arterial Blood Partial 35 Pressure CO2 Arterial Blood Partial 98 Pressure O2 Arterial Blood Oxygen Content 13.4 Arterial Blood 3.8 Carboxyhemoglobin Arterial Blood Methemoglobin 0.5 Blood Gas Hemoglobin 10.1 Oxygen Delivery Device ROOM AIR Blood Gas Inspired Oxygen 21 Result Diagram: 09/20/1620 09/20/16 0620 Imaging Last Impressions Abdomen/Pelvis CT 09/20/16 0700 Signed Impressions: Service Date/Time: Tuesday, September 20, 2016 09:12 - CONCLUSION: 1. Minimal bowel wall thickening and subtle inflammatory changes descending colon 2. There is no diverticulitis 3. Bilateral renal stones without hydronephrosis or pyelonephritis. Jean Ko MD FACR Chest X-Ray 09/20/16 0607 Signed Impressions: Service Date/Time: Tuesday, September 20, 2016 06:16 - CONCLUSION: Emphysematous changes of the lungs. Otherwise negative exam. Elizabeth Cruz MD Assessment and Plan Assessment and Plan This is a 71 year male patient with a past medical history which includes hypertension, hyperlipidemia, COPD, tobacco abuse, alcohol abuse, history of chronic neck pain follows with pain management, history of chronic abdominal pain. Patient complains of, "real bad abdominal pain." Abdominal pain macrocytic anemia with ETOH abuse and recent black stools hemoglobin 8.8 with Hct 25.7 and MCV 100.2, hemoglobin 12/29/2015 13.8 GI consult occult stool ferritin, iron profile and B12 levels pending CT abdomen reviewed and reveals: 1. Minimal bowel wall thickening and subtle inflammatory changes descending colon 2. There is no diverticulitis 3. Bilateral renal stones without hydronephrosis or pyelonephritis. AST 69, ALT 32 Protonix started Patient started on Flagyl and Rocephin Dysphagia with both liquids and solids Consult GI Protonix started Hypokalemia potassium 2.9 with magnesium 0.8 replaced Recheck BMP today Hypocalcemia calcium 6.6 also replaced Hyperglycemia glucose 62 on admission patient started on D5 with Accu-Cheks every 2 hours we'll continue to monitor Chronic EtOH abuse Patient counseled encouraged to cut down then abstain CIWA protocol with thiamine Monitor closely for signs of withdrawal seizure precautions Tobacco use patient counseled encouraged to abstain Hypertension patient's home nifedipine restarted continue to monitor blood pressure trend SCDs for DVT prophylaxis avoid chemical DVT prophylaxis in light of anemia the above h/p was scribed by Ms.Kimberley Martinez (MARGY). I, Dr.Mohammadreza Hill, personally examined the patient, reviewed the available data and discussed the findings and plan with the patient. Discussed Condition With ER physician and the patient. Physician Certification 2 Midnight Certification Type: Admission for Inpatient Services Order for Inpatient Services The services are ordered in accordance with Medicare regulations or non- Medicare payer requirements, as applicable. In the case of services not specified as inpatient-only, they are appropriately provided as inpatient services in accordance with the 2-midnight benchmark. Estimated LOS (days): 3 days is the estimated time the patient will need to remain in the hospital, assuming treatment plan goals are met and no additional complications. Post-Hospital Plan: Home Kandice Martinez Sep 20, 2016 12:01 Melvin Hill MD Sep 20, 2016 12:32
[2016-09-20] MEDS: DEXT 5%-NACL 0.9% 1000 ML INJ 1,000 ML IV SCH ×2 (12:26→20:45)
[2016-09-20] MEDS ORDERED: HYDROmorphone HCL PF 1 MG/ML VIAL IV PUSH PRN (12:45)
[2016-09-20] MEDS ORDERED: ACETAMINOPHEN/HYDROcodone 325 MG/5 MG TAB PO PRN (12:45)
[2016-09-20] MEDS ORDERED: ENALAPRILAT 1.25 MG/ML VIAL IV PUSH PRN (12:45)
[2016-09-20] MEDS: ACETAMINOPHEN/HYDROcodone 325 MG/5 MG TAB PO PRN ×3 (13:28→22:12)
[2016-09-20] MEDS ORDERED: SODIUM CHLORIDE 0.9% FLUSH 10 ML FLUSH IV FLUSH PRN (13:30)
[2016-09-20] MEDS: cefTRIAXone INJ 1,000 MG in SODIUM CHLORIDE 0.9% INJ 100 ML IV SCH (13:30)
[2016-09-20] MEDS: PANTOPRAZOLE SODIUM 40 MG VIAL IV PUSH SCH (13:30)
[2016-09-20] MEDS ORDERED: LORazepam 2 MG TAB PO PRN (13:30)
[2016-09-20] MEDS ORDERED: LORazepam 2 MG/ML VIAL IV PUSH PRN ×4 (13:30)
[2016-09-20] MEDS ORDERED: LORazepam 1 MG TAB PO PRN (13:30)
[2016-09-20] MEDS ORDERED: FLUMAZENIL 0.5 MG/5 ML VIAL IV PUSH PRN (13:30)
[2016-09-20 13:58] LABS: ANION GAP 11 MEQ/L (5-15); BICARBONATE 22.2 MEQ/L (21.0-32.0); BLOOD UREA NITROGEN 14 MG/DL (7-18); CHLORIDE 109 MEQ/L (98-107); GLOMERULAR FILTRATION RATE 67 ML/MIN (>89); POTASSIUM 3.3 MEQ/L (3.5-5.1); SODIUM (NA) 142 MEQ/L (136-145)
[2016-09-20 14:14] LABS: FERRITIN 1388 NG/ML (26-388); TRANSFERRIN IRON PROFILE 256 MG/DL (200-360)
[2016-09-20] MEDS: metroNIDAZOLE 500 MG INJ 100 ML IV SCH ×2 (14:25→20:36)
[2016-09-20] MEDS ORDERED: POTASSIUM CHLORIDE 10 MEQ CONTROLLED RELEASE TAB PO ONE (15:45)
--- NOTE | 2016-09-20 16:33 | PD.CONS ---
HPI History of Present Illness This is a 71 year old male who presented to the ER for evaluation of bilateral inguinal pain, nausea, vomiting, dysphagia, decreased appetite, alternating constipation and diarrhea, and black tarry stools. He tells me that he has been having intermittent bilateral inguinal pain for the past week and a half. He describes this as a dull ache, throbbing pain that seems to radiate to his back and seems to be related to moving and urination. He states that he was having difficulty urinating last week, although he is now urinating fine. He denies any hematuria, but states that this his urine is very "thick and yellow. " He also states that he is having decreased appetite with intermittent nausea and vomiting for the past 3-4 months. He denies any hematemesis. He is not having any upper abdominal pain. He does have difficulty swallowing with both liquids and solids getting caught in his upper esophagus. This has progressively been getting worse over the past 3-4 months. He states that he has a long history of alternating constipation and diarrhea. At times she will not have a bowel movement for 10 days and he takes stool softeners at home. Sometimes these work and sometimes they do not. Usually after being constipated , once he finally goes, he will have about a week of loose stools. He has not seen any red blood in his stool but states that his stool has been dark and tarry for the past month. He denies taking any blood thinners. He reports that he drinks alcohol about 2-3 times a week, several drinks at a time. He is not on any ibuprofen at this time. He states his weight fluctuates between 122 and 130 lbs and he is currently around 122 lbs. He denies any recent travel, suspicious food, sick contacts, or antibiotics. We saw the patient in 2012 at which time he was evaluated with an EGD and colonoscopy which revealed severe gastritis otherwise unremarkable esophagogastroduodenoscopy and unremarkable colonoscopy with fair colon preparation. Pathology revealed antral mucosa with moderate active chronic gastritis positive for Helicobacter like organisms. He then underwent an enteroscopy the next day which was difficult but did reveal small area of thickened fold/polyp in the proximal jejunum, s/p biopsy and tattoo injection as described above. Pathology revealed an adenomatous polyp. He was then seen and January 2015 and underwent a small bowel enteroscopy (12/03) and this revealed mild duodenitis. No polyps were noted and small jejunum. Needs follow-up in 3 months. The patient cannot recall if he ever followed up. According to our outpatient records, he never followed up in the office. (Tri Nicholson) [facility] Past Medical History Acute liver failure secondary to Tylenol toxicity Chronic abdominal pain Hypertension Adenomatous polyp of the jejunum Pancreatitis Chronic neck pain Hernia Elevated PSA History of kidney stones History of hepatitis C antibodies Chronic constipation alternating with diarrhea Dysphasia, denies any history of esophageal stricture Past Surgical History Vocal cord growth removal Prostate biopsy Hernia repair. Diagnostic laparoscopy with extensive lysis of adhesions primarily involving the small bowel and appendix adhesions EGD/colonoscopy Enteroscopy (Tri Nicholson) Coded Allergies: No Known Allergies (Verified , 09/20/16) Medications Allergies Coded Allergies Type Severity Reaction Last Updated Verified No Known Allergies 09/20/16 Yes Active Scripts Medications Dose Route/Sig Days Date Category [water pill] 09/20/16 Reported Tizanidine (Tizanidine HCl) 4 Mg Tab 4 Mg PO HS PRN 09/20/16 Reported Nifedipine ER 24 HR (Nifedipine) 60 Mg Tab 60 Mg PO BID 12/29/15 Reported Family History Noncontributory Social History States he drinks 2-3 days a week, usually a few drinks. He told another provider that he drank 1/2 pint of Vodka per day and that he drinks "I just drink till I fallout." Smokes 1/2 PPD Denies illicit drug use. (Tri Nicholson) Review of Systems Constitutional: COMPLAINS OF: Weight loss, DENIES: Fatigue, Fever, Chills Respiratory: DENIES: Cough, Shortness of breath Cardiovascular: DENIES: Chest pain Gastrointestinal: COMPLAINS OF: Abdominal pain (inguinal bilateral/lower suprapubic discomfort), Black stools, Constipation, Diarrhea, Nausea, Vomiting, Difficulty Swallowing, DENIES: Bloody stools, Anorexia, Swelling of Abdomen, Hematemesis Genitourinary: COMPLAINS OF: Dysuria, DENIES: Hematuria Musculoskeletal: COMPLAINS OF: Back pain, Neck pain Integumentary: DENIES: Abnormal pigmentation Hematologic/lymphatic: DENIES: Bruising Neurologic: DENIES: Headache Psychiatric: DENIES: Confusion (Tri Nicholson) GI Exam Vitals I&O Vital Signs Date Time Temp Pulse Resp B/P Pulse Ox O2 Delivery O2 Flow Rate FiO2 09/20/16 12:32 97.9 92 18 196/109 100 09/20/16 11:56 72 22 123/72 09/20/16 11:29 99 21 09/20/16 06:27 100 Nasal Cannula 2 09/20/16 06:27 100 Room Air 09/20/16 05:15 100 Nasal Cannula 2 09/20/16 05:08 97.9 95 23 161/96 100 I/O 09/19/16 09/19/16 09/19/16 09/20/16 09/20/16 09/20/16 07:00 15:00 23:00 07:00 15:00 23:00 Intake Total 240 ml Output Total 400 ml Balance 240 ml -400 ml Intake Oral 240 ml Output Urine Total 400 ml Imaging Last Impressions Abdomen/Pelvis CT 09/20/16 0700 Signed Impressions: Service Date/Time: Tuesday, September 20, 2016 09:12 - CONCLUSION: 1. Minimal bowel wall thickening and subtle inflammatory changes descending colon 2. There is no diverticulitis 3. Bilateral renal stones without hydronephrosis or pyelonephritis. Jean Ko MD FACR Chest X-Ray 09/20/16 0607 Signed Impressions: Service Date/Time: Tuesday, September 20, 2016 06:16 - CONCLUSION: Emphysematous changes of the lungs. Otherwise negative exam. Elizabeth Cruz MD Laboratory Test 09/20/16 09/20/16 09/20/16 06:20 06:30 13:17 White Blood Count 6.2 TH/MM3 Red Blood Count 2.56 MIL/MM3 Hemoglobin 8.8 GM/DL Hematocrit 25.7 % Mean Corpuscular Volume 100.2 FL Mean Corpuscular Hemoglobin 34.4 PG Mean Corpuscular Hemoglobin 34.3 % Concent Red Cell Distribution Width 15.6 % Platelet Count 112 TH/MM3 Mean Platelet Volume 9.3 FL Neutrophils (%) (Auto) 47.6 % Lymphocytes (%) (Auto) 38.6 % Monocytes (%) (Auto) 11.3 % Eosinophils (%) (Auto) 1.7 % Basophils (%) (Auto) 0.8 % Neutrophils # (Auto) 2.9 TH/MM3 Lymphocytes # (Auto) 2.4 TH/MM3 Monocytes # (Auto) 0.7 TH/MM3 Eosinophils # (Auto) 0.1 TH/MM3 Basophils # (Auto) 0.0 TH/MM3 CBC Comment AUTO DIFF Differential Comment AUTO DIFF CONFIRMED Prothrombin Time 11.6 SEC Prothromb Time International 1.0 RATIO Ratio Activated Partial 24.0 SEC Thromboplast Time Urine Color YELLOW Urine Turbidity CLEAR Urine pH 6.0 Urine Specific [place] 1.009 Urine Protein TRACE mg/dL Urine Glucose (UA) NEG mg/dL Urine Ketones NEG mg/dL Urine Occult Blood NEG Urine Nitrite NEG Urine Bilirubin NEG Urine Urobilinogen LESS THAN 2.0 MG/DL Urine Leukocyte Esterase NEG Urine RBC LESS THAN 1 /hpf Urine WBC 1 /hpf Microscopic Urinalysis Comment CULT NOT INDICATED Sodium Level 147 MEQ/L 142 MEQ/L Potassium Level 2.9 MEQ/L 3.3 MEQ/L Chloride Level 117 MEQ/L 109 MEQ/L Carbon Dioxide Level 20.8 MEQ/L 22.2 MEQ/L Anion Gap 9 MEQ/L 11 MEQ/L Blood Urea Nitrogen 13 MG/DL 14 MG/DL Creatinine 1.07 MG/DL 1.29 MG/DL Estimat Glomerular Filtration 83 ML/MIN 67 ML/MIN Rate Random Glucose 62 MG/DL 77 MG/DL Calcium Level 6.6 MG/DL 9.6 MG/DL Protein Corrected Calcium 7.7 MG/DL Magnesium Level 0.8 MG/DL Total Bilirubin 0.2 MG/DL Aspartate Amino Transf 69 U/L (AST/SGOT) Alanine Aminotransferase 32 U/L (ALT/SGPT) Alkaline Phosphatase 61 U/L Total Creatine Kinase 107 U/L Creatine Kinase MB LESS THAN 0.5 NG/ML Troponin I LESS THAN 0.02 NG/ML B-Type Natriuretic Peptide 8 PG/ML Total Protein 5.0 GM/DL Albumin 2.3 GM/DL Blood Gas Puncture Site RT RADIAL Blood Gas Patient Temperature 98.6 Blood Gas HCO3 23 mmol/L Blood Gas Base Excess -1.2 mmol/L Blood Gas Oxygen Saturation 94 % Arterial Blood pH 7.43 Arterial Blood Partial 35 mmHg Pressure CO2 Arterial Blood Partial 98 mmHG Pressure O2 Arterial Blood Oxygen Content 13.4 Vol % Arterial Blood 3.8 % Carboxyhemoglobin Arterial Blood Methemoglobin 0.5 % Blood Gas Hemoglobin 10.1 G/DL Oxygen Delivery Device ROOM AIR Blood Gas Inspired Oxygen 21 % Iron Level 158 MCG/DL Total Iron Binding Capacity 358 MCG/DL Percent Iron Saturation 44.1 % Ferritin 1388 NG/ML Vitamin B12 Level 386 PG/ML Folate 4.9 NG/ML Physical Examination HEENT: Normocephalic; atraumatic; no jaundice. CHEST: CTA CARDIAC: RRR ABDOMEN: Soft, nondistended, nontender; no hepatosplenomegaly; bowel sounds are present in all four quadrants. Bilateral inguinal/suprapubic tenderness on exam EXTREMITIES: No clubbing, cyanosis, or edema. SKIN: Normal; no rash; no jaundice. WASTEWATER ANALYST: No focal deficits; alert and oriented times three. (NicholsonTrijose LAURENT) Assessment and Plan Plan ASSESSMENT: - Melena. C/O one week history of black tarry stool. EGD and colonoscopy (2012 ) which revealed severe gastritis otherwise unremarkable esophagogastroduodenoscopy and unremarkable colonoscopy with fair colon preparation. Pathology revealed antral mucosa with moderate active chronic gastritis positive for Helicobacter like organisms. He then underwent an enteroscopy the next day which was difficult but did reveal small area of thickened fold/polyp in the proximal jejunum, s/p biopsy and tattoo injection as described above. Pathology revealed an adenomatous polyp. He then had a small bowel enteroscopy (01/28/15) and this revealed mild duodenitis. No polyps were noted and small jejunum. Needs follow-up in 3 months. The patient cannot recall if he ever followed up. According to our outpatient records, he never followed up in the office. He denies taking any blood thinners or NSAIDs. There is a history of alcohol use. - Anemia secondary to acute blood loss. H&H is 8.8/95.7. Iron 158, TIBC 358, iron saturation 44.1, ferritin 1388 - Dysphagia. Difficulty swallowing both liquids and solids, with these getting caught in upper esophagus. Progressively getting worse over the past 3 months - Decreased appetite with nausea and vomiting. No hematemesis. Patient reports that he has been having intermittent nausea and vomiting with decreased appetite For 3-4 months. His weight fluctuates between 122 and 1:30 pounds and he states he is currently at 122 pounds. Abdomen/Pelvis CT (09/20/16)----> 1. Minimal bowel wall thickening and subtle inflammatory changes descending colon 2. There is no diverticulitis 3. Bilateral renal stones without hydronephrosis or pyelonephritis. He does have a history of pancreatitis. We'll check lipase and LFTs unremarkable other than mild elevation of AST. He continues to drink alcohol. - Alternating constipation and diarrhea. States he will not move his bowels for 10 days and takes stool softeners and that when he does finally go, he will have diarrhea x 1 week. Last colonoscopy 2012 as above. - Abn. CT with minimal bowel wall thickening and subtle inflammatory changes descending colon. Denies recent antibiotic use, travel, suspicious food, sick contacts. He is on Flagyl - Lower abdominal pain- seems to be more suprapubic, bilateral inguinal pain. He states that his pain is more related to urination and movement. He also reports that he was having difficulty urinating last week, although he is now avoiding without problems. He denies any hematuria although he does complain of his urine "thick and yellow" U/A unremarkable. - History adenomatous polyps of the jejunum. Last enteroscopy was January 2015. It was recommended that he have a repeat in 3 months, but he did not follow-up as outpatient - Difficulty urinating with bilateral renal stones on CT, improved. Per attending. - Electrolyte abnormalities, COPD, HTN, per attending. PLAN: - Plan for EGD plus or minus dilatation, possible enteroscopy in a.m. - Obtain consents - Nothing by mouth after midnight - Continue Flagyl - Continue Protonix - Stool studies for C. difficile, C/S, Giardia, O&P - CBC, CMP in am - Supportive care - Further recommendations to follow based on results of above - PT seen and examined by Dr. Olivares and myself and this note is written on her behalf (Tri Nicholson) Physician Comments seen, examined agree with above (Evelina Olivares MD) Tri Nicholson Sep 20, 2016 16:33 Evelina Olivares MD Sep 20, 2016 18:58
[2016-09-20] MEDS: NIFEdipine 60 MG SUSTAINED RELEASE TAB PO SCH (20:35)
[2016-09-20] MEDS: SODIUM CHLORIDE 0.9% FLUSH 10 ML FLUSH IV FLUSH SCH (20:37)
[2016-09-21] VITALS (9 sets, daily range): BP systolic 123–135; BP diastolic 69–86; PULSE 72–100; RESP 18; TEMP 97.9–98.3; O2SAT 98–100
[2016-09-21] MEDS: metroNIDAZOLE 500 MG INJ 100 ML IV SCH ×3 (05:29→21:38)
[2016-09-21] MEDS: DEXT 5%-NACL 0.9% 1000 ML INJ 1,000 ML IV SCH (05:45)
[2016-09-21] MEDS: ACETAMINOPHEN/HYDROcodone 325 MG/5 MG TAB PO PRN ×2 (05:45→21:38)
--- NOTE | 2016-09-21 07:56 | HHI.PR ---
Subjective Remarks resting comfortably with no distress. abdominal pain is better. no nausea, vomiting. no diarrhea. afebrile. Objective Vitals Vital Signs Date Time Temp Pulse Resp B/P Pulse Ox O2 Delivery O2 Flow Rate FiO2 09/21/16 04:00 98.2 79 18 129/69 99 09/21/16 01:09 97.9 72 18 130/72 99 09/20/16 22:00 92 09/20/16 21:06 97.7 73 18 136/76 100 09/20/16 16:08 98.1 79 18 140/78 100 09/20/16 12:32 97.9 92 18 196/109 100 09/20/16 11:56 72 22 123/72 09/20/16 11:29 99 21 I/O 09/20/16 09/20/16 09/20/16 09/21/16 09/21/16 09/21/16 07:00 15:00 23:00 07:00 15:00 23:00 Intake Total 240 ml 583 ml Output Total 400 ml Balance 240 ml 183 ml Intake Oral 240 ml IV Total 583 ml Output Urine Total 400 ml # Voids 4 # Bowel Movements 0 Result Diagram: 09/20/16 0620 09/20/16 1317 Imaging Last Impressions Abdomen/Pelvis CT 09/20/16 0700 Signed Impressions: Service Date/Time: Tuesday, September 20, 2016 09:12 - CONCLUSION: 1. Minimal bowel wall thickening and subtle inflammatory changes descending colon 2. There is no diverticulitis 3. Bilateral renal stones without hydronephrosis or pyelonephritis. Jean Ko MD FACR Chest X-Ray 09/20/16 0607 Signed Impressions: Service Date/Time: Tuesday, September 20, 2016 06:16 - CONCLUSION: Emphysematous changes of the lungs. Otherwise negative exam. Elizabeth Cruz MD Objective Remarks GENERAL: This is a well-nourished, well-developed patient, in no apparent distress. CARDIOVASCULAR: Regular rate and regular rhythm without murmurs, gallops, or rubs. RESPIRATORY: Clear to auscultation. Breath sounds equal bilaterally. No wheezes , rales, or rhonchi. GASTROINTESTINAL: Abdomen soft, non-tender, nondistended. Normal, active bowel sounds MUSCULOSKELETAL: Extremities without clubbing, cyanosis, or edema. NEURO: Alert & Oriented x4 to person, place, time, situation. Moves all ext x4 Medications and IVs Current Medications Sodium Chloride (NS Flush) 2 ml UNSCH PRN IVF FLUSH AFTER USING IV ACCESS; Start 09/20/16 at 06:15 Albuterol/ Ipratropium 1 ampule 1 ampule ONCE ONCE INH Last administered on 06:35; Start 09/20/16 at 06:15; Stop 09/20/16 at 06:16; Status DC Sodium Chloride (NS 500 ml Inj) 500 ml @ 500 mls/hr BOLUS ONCE IV Last administered on 09/20/16 07:59; Start 09/20/16 at 07:30; Stop 09/20/16 at 08:29; Status DC Morphine Sulfate (Morphine Inj) 4 mg ONCE ONCE IV PUSH Last administered on 08:00; Start 09/20/16 at 07:30; Stop 09/20/16 at 07:31; Status DC Ondansetron HCl 4 mg 4 mg ONCE ONCE IV PUSH Last administered on 09/20/16 08: 00; Start 09/20/16 at 07:30; Stop 09/20/16 at 07:31; Status DC Thiamine HCl/ Sodium Chloride (Thiamine Inj/NS Inj) 101 ml @ 101 mls/hr ONCE ONCE IV Last administered on 09/20/16 07:59; Start 09/20/16 at 07:30; Stop at 08:29; Status DC Potassium Chloride 40 meq 40 meq ONCE ONCE PO Last administered on 09/20/16 08 :00; Start 09/20/16 at 07:30; Stop 09/20/16 at 07:31; Status DC Sodium Chloride (NS 1000 ml Inj) 1,000 ml @ 999 mls/hr BOLUS ONCE IV Last administered on 09/20/16 09:00; Start 09/20/16 at 08:45; Stop 09/20/16 at 09:45; Status DC Iohexol 85 ml 85 ml STK-MED ONCE IV Last administered on 09/20/16 09:38; Start 09/20/16 at 09:38; Stop 09/20/16 at 09:39; Status DC Calcium Chloride 1 gm/Dextrose 110 ml @ 110 mls/hr ONCE ONCE IV Last administered on 09/20/16 10:24; Start 09/20/16 at 10:15; Stop 09/20/16 at 11:14; Status DC Magnesium Sulfate/ Dextrose 100 ml @ 100 mls/hr Q1H IV Last administered on 12:28; Start 09/20/16 at 10:15; Stop 09/20/16 at 12:14; Status DC Dextrose/Sodium Chloride (D5W-NS 1000 ml Inj) 1,000 ml @ 100 mls/hr Q10H IV Last administered on 09/20/16 12:26; Start 09/20/16 at 10:45 Albuterol/ Ipratropium 1 ampule 1 ampule Q4HR NEB PRN NEB SHORTNESS OF BREATH; Start 09/20/16 at 10:45 Ceftriaxone Sodium 1000 mg/ Sodium Chloride 100 ml @ 200 mls/hr Q24H IV Last administered on 09/20/16 13:30; Start 09/20/16 at 13:00 Metronidazole (Flagyl 500 Mg Inj) 100 ml @ 100 mls/hr Q8H IV Last administered on 09/21/16 05:29; Start 09/20/16 at 14:00 Pantoprazole Sodium (Protonix Inj) 40 mg DAILY IV PUSH Last administered on 09/20 13:30; Start 09/20/16 at 12:15 Nifedipine (Procardia Xl) 60 mg BID PO Last administered on 09/20/16 20:35; Start 09/20/16 at 21:00 Tizanidine HCl (Zanaflex) 4 mg HS PRN PO MUSCLE SPASM; Start 09/20/16 at 12:15 Enalaprilat (Vasotec Inj) 1.25 mg Q8H PRN IV PUSH SBP> OR = 180, DBP> OR = 100 Last administered on 09/20/16 13:29; Start 09/20/16 at 12:45 Hydromorphone HCl (Dilaudid Pf Inj) 0.5 mg Q4H PRN IV PUSH BREAKTHROUGH PAIN; Start 09/20/16 at 12:45 Acetaminophen/ Hydrocodone Bitart (Diamond 5-325 Mg) 1 tab Q4H PRN PO PAIN 1-5; Start 09/20/16 at 12:45 Acetaminophen/ Hydrocodone Bitart (Diamond 5-325 Mg) 2 tab Q4H PRN PO PAIN 6-10 Last administered on 09/21/16 05:45; Start 09/20/16 at 12:45 Sodium Chloride (NS Flush) 2 ml UNSCH PRN IV FLUSH FLUSH AFTER USING IV ACCESS ; Start 09/20/16 at 13:30 Sodium Chloride (NS Flush) 2 ml BID IV FLUSH Last administered on 09/20/16 20: 37; Start 09/20/16 at 21:00 Flumazenil (Romazicon Inj) 0.2 mg Q1M PRN IV PUSH SEE LABEL COMMENTS; Start 09/20/16 at 13:30 Lorazepam (Ativan) 1 mg Q4H PRN PO CIWA 8 - 10; Start 09/20/16 at 13:30 Lorazepam (Ativan Inj) 1 mg Q4H PRN IV PUSH CIWA 8 - 10; Start 09/20/16 at 13:30 Lorazepam (Ativan) 2 mg Q2H PRN PO CIWA 11-14; Start 09/20/16 at 13:30 Lorazepam (Ativan Inj) 2 mg Q2H PRN IV PUSH CIWA 11-14; Start 09/20/16 at 13:30 Lorazepam (Ativan Inj) 2 mg Q1H PRN IV PUSH CIWA 15-20; Start 09/20/16 at 13:30 Lorazepam (Ativan Inj) 2 mg Q15M PRN IV PUSH CIWA > 20; Start 09/20/16 at 13:30 Potassium Chloride (KCl) 30 meq ONCE ONCE PO Last administered on 09/20/16 16: 48; Start 09/20/16 at 15:45; Stop 09/20/16 at 15:51; Status DC A/P Assessment and Plan Abdominal pain macrocytic anemia with ETOH abuse and recent black stools hemoglobin 8.8 with Hct 25.7 and MCV 100.2, hemoglobin 12/29/2015 13.8 GI consult appreciated and plan for EGD. occult stool CT abdomen reviewed and reveals: 1. Minimal bowel wall thickening and subtle inflammatory changes descending colon 2. There is no diverticulitis 3. Bilateral renal stones without hydronephrosis or pyelonephritis. AST 69, ALT 32 Protonix started Patient started on Flagyl and Rocephin Dysphagia with both liquids and solids GI evaluation as noted above; plan for EGD. Protonix started Hypokalemia / hypocalcemia/ hypomagnesemia; replaced. Hyperglycemia glucose 62 on admission patient started on D5 with Accu-resolved with no recurrence- Chronic EtOH abuse Patient counseled encouraged to cut down then abstain CIWA protocol with thiamine Monitor closely for signs of withdrawal seizure precautions Tobacco use patient counseled encouraged to abstain Hypertension patient's home nifedipine restarted continue to monitor blood pressure trend SCDs for DVT prophylaxis avoid chemical DVT prophylaxis in light of anemia Discharge Planning awaiting GI work-up. Melvin Hill MD Sep 21, 2016 07:56
[2016-09-21 08:53] LABS: AUTOMATED NEUTROPHIL # 3.2 TH/MM3 (1.8-7.7); BASOPHIL % 0.7 % (0.0-2.0); EOSINOPHIL # 0.1 TH/MM3 (0-0.4); EOSINOPHIL % 2.2 % (0.0-4.0); HEMATOCRIT 24.5 % (39.0-51.0); LYMPH % 21.6 % (9.0-44.0); LYMPHOCYTE # 1.1 TH/MM3 (1.0-4.8); MEAN CELL VOLUME 100.6 FL (80.0-100.0); MEAN CORPUSCULAR HEMOGLOBIN 34.4 PG (27.0-34.0); MEAN CORPUSCULAR HGB CONC 34.2 % (32.0-36.0); MONO % 11.5 % (0.0-8.0); PLATELET COUNT 119 TH/MM3 (150-450); RED BLOOD COUNT 2.44 MIL/MM3 (4.50-5.90); RED CELL DISTRIBUTION WIDTH 16.1 % (11.6-17.2); WHITE BLOOD COUNT 4.9 TH/MM3 (4.0-11.0)
[2016-09-21 08:59] LABS: HEMO FLAGS AUTO DIFF
[2016-09-21] MEDS: SODIUM CHLORIDE 0.9% FLUSH 10 ML FLUSH IV FLUSH SCH ×2 (09:00→21:00)
[2016-09-21 09:21] LABS: BICARBONATE 21.8 MEQ/L (21.0-32.0); POTASSIUM 3.3 MEQ/L (3.5-5.1)
[2016-09-21] MEDS ORDERED: PEG (High)/E-LYTE SOLN 4000 ML BTL PO ONE (09:45)
--- NOTE | 2016-09-21 09:47 | GIPROC ---
[facility] [address] [facility]. [facility] [place], [id number] EGD WITH DILATION PROCEDURE REPORT EXAM DATE: 09/21/2016 PATIENT NAME: Bay Quarles MR#: [id number] BIRTHDATE: 1945 ATTENDING: Evelina Olivares MD ORDER #: [id number] SHIPPING/RECEIVING MANAGER: Indigo Waters and Ethan Mackay STATUS: inpatient INDICATIONS: The patient is a 71 yr old male here for an EGD with dilation due to abdominal pain jejunal polyp gi bleeding PROCEDURE PERFORMED: EGD w/ biopsy EGD w/ dilation of esophagus via guidewire enteroscopy with biopsy MEDICATIONS: None and Per Anesthesia. TOPICAL ANESTHETIC: none CONSENT: The patient understands the risks and benefits of the procedure and understands that these risks include, but are not limited to: sedation, allergic reaction, infection, perforation and/or bleeding. Alternative means of evaluation and treatment include, among others: physical exam, x-rays, and/or surgical intervention. The patient elects to proceed with this endoscopic procedure. medical equipment was checked for proper function. Hand hygiene and appropriate measures for infection prevention was taken. After the risks, benefits and alternatives of the procedure were thoroughly explained, Informed consent was verified, confirmed and timeout was successfully executed by the treatment team. The patient was anesthetized with topical anesthesia and the EC-[id number] (Pedi C) endoscope was introduced through the mouth and advanced to the second portion of the duodenum. The instrument was slowly withdrawn as the mucosa was fully examined. Gastrtis antrum-biopsy duodenitis second portion-biopsy polyp/homer ink tattoo in proximal jejunum-biopsy esophagitis distal esophsgus-biopsy spasm distal esophagus. Dilation was performed at gastroesophageal junction. DILATOR: SIZE(S): RESISTANCE: HEME: APPEARANCE: Dilator: Savary over guidewire Size(s): 17 COMMENT: Retroflexed views revealed a hiatal hernia ADVERSE EVENTS: There were no complications. IMPRESSIONS: 1. Gastrtis antrum-biopsy duodenitis second portion-biopsy polyp/homer ink tattoo in proximal jejunum-biopsy esophagitis distal esophsgus-biopsy spasm distal esophagus 2. Retroflexed views revealed a hiatal hernia RECOMMENDATIONS: 1. Await biopsy results. Biopsy results will not be ready for 7-10 days. If you don't hear from us in two weeks, call our office for biopsy results. 2. Anti-reflux regimen 3. Continue PPI 4. Start PPI 5. Dilatations PRN 6. Cta colonoscopy in am REPEAT EXAM: EGD pending biopsy results Evelina Olivares MD eSigned: Evelina Olivares MD 09/21/2016 9:46 AM cc: PATIENT NAME: Bay Quarles MR#: [id number]
[2016-09-21] MEDS ORDERED: PROPOFOL 200 MG/20 ML AMP IV ONE (10:03)
[2016-09-21 10:47] LABS: PLATELET MORPHOLOGY NORMAL (NORMAL); SCAN/DIFF AUTO DIFF CONFIRMED
[2016-09-21 10:48] LABS: PLATELET ESTIMATE SMEAR LOW (NORMAL)
[2016-09-21] MEDS: PANTOPRAZOLE SODIUM 40 MG VIAL IV PUSH SCH (10:48)
[2016-09-21] MEDS: NIFEdipine 60 MG SUSTAINED RELEASE TAB PO SCH ×2 (10:48→21:38)
[2016-09-21 10:51] LABS: KERATOCYTES OCC (NORMAL)
[2016-09-21] MEDS ORDERED: POTASSIUM CHLORIDE 20 MEQ CONTROLLED RELEASE TAB PO ONE (14:00)
[2016-09-21] MEDS: cefTRIAXone INJ 1,000 MG in SODIUM CHLORIDE 0.9% INJ 100 ML IV SCH (15:00)
[2016-09-22] VITALS (8 sets, daily range): BP systolic 113–130; BP diastolic 62–74; PULSE 86–100; RESP 18–20; TEMP 97.5–99; O2SAT 96–100
[2016-09-22] MEDS: ACETAMINOPHEN/HYDROcodone 325 MG/5 MG TAB PO PRN ×5 (01:33→20:14)
[2016-09-22] MEDS: DEXT 5%-NACL 0.9% 1000 ML INJ 1,000 ML IV SCH ×2 (01:35→20:16)
[2016-09-22] MEDS: metroNIDAZOLE 500 MG INJ 100 ML IV SCH ×3 (06:01→20:15)
[2016-09-22] MEDS ORDERED: PROPOFOL 200 MG/20 ML AMP IV ONE (10:03)
--- NOTE | 2016-09-22 10:27 | GIPROC ---
[facility] [address] [facility]. [facility], [address] COLONOSCOPY PROCEDURE REPORT EXAM DATE: 09/22/2016 PATIENT NAME: Bay Quarles MR #: [id number] BIRTHDATE: 1945 ENDOSCOPIST: Evelina Olivares MD ORDER #: [id number] DRUM SANDER: Juancarlos Musa and Herman Del Toro STATUS: inpatient INDICATIONS: The patient is a 71 yr old male here for a colonoscopy due to change in bowel habits PROCEDURE PERFORMED: Colonoscopy with biopsy MEDICATIONS: None and Per Anesthesia. PREP QUALITY: fair PREP TYPE:Other: ESTIMATED BLOOD LOSS: None CONSENT: The patient understands the risks and benefits of the procedure and understands that these risks include, but are not limited to: sedation, allergic reaction, infection, perforation and/or bleeding. Alternative means of evaluation and treatment include, among others: physical exam, x-rays, and/or surgical intervention. The patient elects to proceed with this endoscopic procedure. medical equipment was checked for proper function. Hand hygiene and appropriate measures for infection prevention was taken. After the risks, benefits and alternatives of the procedure were thoroughly explained, Informed consent was verified, confirmed and timeout was successfully executed by the treatment team. A digital exam revealed internal hemorrhoids The Pentax EC-[id number] endoscope was introduced through the anus and advanced to the cecum, which was identified by both the appendix and ileocecal valve. The instrument was then slowly withdrawn as the colon was fully examined. COLON FINDINGS: Internal hemorrhoids diverticulosis sigmoid random biopsy descending. Retroflexed views revealed internal hemorrhoids and Retroflexed views revealed small internal hemorrhoids The scope was then completely withdrawn from the patient and the procedure terminated. PROCEDURE WITHDRAWAL TIME:6minutes ADVERSE EVENTS: There were no complications. IMPRESSIONS: 1. Internal hemorrhoids diverticulosis sigmoid random biopsy descending 2. Retroflexed views revealed internal hemorrhoids 3. Retroflexed views revealed small internal hemorrhoids 4. Revealed internal hemorrhoids RECOMMENDATIONS: 1. Await biopsy results. Biopsy results will not be ready for 7-10 days. If you don't hear from us in two weeks, call our office for results. 2. Probiotics from any [employer] or health food store 3. Cta RECALL: Colonoscopy, pending biopsy results Evelina Olivares MD eSigned: Evelina Olivares MD 09/22/2016 10:27 AM cc:
[2016-09-22] MEDS: NIFEdipine 60 MG SUSTAINED RELEASE TAB PO SCH ×2 (12:50→20:15)
[2016-09-22] MEDS: PANTOPRAZOLE SODIUM 40 MG VIAL IV PUSH SCH (12:51)
--- NOTE | 2016-09-22 13:15 | HHI.PR ---
Subjective Remarks resting comfortably with no distress. no abdominal pain, nausea or vomiting. Objective Vitals Vital Signs Date Time Temp Pulse Resp B/P Pulse Ox O2 Delivery O2 Flow Rate FiO2 09/22/16 12:29 98.2 100 20 113/64 99 09/22/16 11:20 98.1 97 16 115/68 99 09/22/16 10:50 93 106/69 99 09/22/16 10:45 92 16 104/67 97 09/22/16 10:31 98.5 94 16 113/69 96 09/22/16 07:57 96 09/22/16 04:49 99.0 90 18 130/63 98 09/22/16 01:40 98.8 88 18 116/68 99 09/21/16 21:58 98 21 09/21/16 21:38 87 09/21/16 21:13 98.1 100 18 135/73 100 09/21/16 16:00 98.0 84 18 132/78 98 I/O 09/21/16 09/21/16 09/21/16 09/22/16 09/22/16 09/22/16 06:59 14:59 22:59 06:59 14:59 22:59 Intake Total 1378 ml 840 ml Output Total 600 ml 200 ml 600 ml Balance 1378 ml 240 ml -200 ml -600 ml Intake Oral 240 ml IV Total 1378 ml Other 600 ml Output Urine Total 600 ml 200 ml 600 ml # Voids 4 2 # Bowel Movements 0 4 1 Result Diagram: 09/21/16 0746 09/21/16 0746 Imaging Last Impressions Abdomen/Pelvis CT 09/20/16 0700 Signed Impressions: Service Date/Time: Tuesday, September 20, 2016 09:12 - CONCLUSION: 1. Minimal bowel wall thickening and subtle inflammatory changes descending colon 2. There is no diverticulitis 3. Bilateral renal stones without hydronephrosis or pyelonephritis. Jean Ko MD FACR Chest X-Ray 09/20/16 0607 Signed Impressions: Service Date/Time: Tuesday, September 20, 2016 06:16 - CONCLUSION: Emphysematous changes of the lungs. Otherwise negative exam. Elizabeth Cruz MD Objective Remarks GENERAL: This is a well-nourished, well-developed patient, in no apparent distress. CARDIOVASCULAR: Regular rate and regular rhythm without murmurs, gallops, or rubs. RESPIRATORY: Clear to auscultation. Breath sounds equal bilaterally. No wheezes , rales, or rhonchi. GASTROINTESTINAL: Abdomen soft, non-tender, nondistended. Normal, active bowel sounds MUSCULOSKELETAL: Extremities without clubbing, cyanosis, or edema. NEURO: Alert & Oriented x4 to person, place, time, situation. Moves all ext x4 Procedures EGD/ colonoscopy. Medications and IVs Current Medications Sodium Chloride (NS Flush) 2 ml UNSCH PRN IVF FLUSH AFTER USING IV ACCESS; Start 09/20/16 at 06:15 Albuterol/ Ipratropium 1 ampule 1 ampule ONCE ONCE INH Last administered on 06:35; Start 09/20/16 at 06:15; Stop 09/20/16 at 06:16; Status DC Sodium Chloride (NS 500 ml Inj) 500 ml @ 500 mls/hr BOLUS ONCE IV Last administered on 09/20/16 07:59; Start 09/20/16 at 07:30; Stop 09/20/16 at 08:29; Status DC Morphine Sulfate (Morphine Inj) 4 mg ONCE ONCE IV PUSH Last administered on 08:00; Start 09/20/16 at 07:30; Stop 09/20/16 at 07:31; Status DC Ondansetron HCl 4 mg 4 mg ONCE ONCE IV PUSH Last administered on 09/20/16 08: 00; Start 09/20/16 at 07:30; Stop 09/20/16 at 07:31; Status DC Thiamine HCl/ Sodium Chloride (Thiamine Inj/NS Inj) 101 ml @ 101 mls/hr ONCE ONCE IV Last administered on 09/20/16 07:59; Start 09/20/16 at 07:30; Stop at 08:29; Status DC Potassium Chloride 40 meq 40 meq ONCE ONCE PO Last administered on 09/20/16 08 :00; Start 09/20/16 at 07:30; Stop 09/20/16 at 07:31; Status DC Sodium Chloride (NS 1000 ml Inj) 1,000 ml @ 999 mls/hr BOLUS ONCE IV Last administered on 09/20/16 09:00; Start 09/20/16 at 08:45; Stop 09/20/16 at 09:45; Status DC Iohexol 85 ml 85 ml STK-MED ONCE IV Last administered on 09/20/16 09:38; Start 09/20/16 at 09:38; Stop 09/20/16 at 09:39; Status DC Calcium Chloride 1 gm/Dextrose 110 ml @ 110 mls/hr ONCE ONCE IV Last administered on 09/20/16 10:24; Start 09/20/16 at 10:15; Stop 09/20/16 at 11:14; Status DC Magnesium Sulfate/ Dextrose 100 ml @ 100 mls/hr Q1H IV Last administered on 12:28; Start 09/20/16 at 10:15; Stop 09/20/16 at 12:14; Status DC Dextrose/Sodium Chloride (D5W-NS 1000 ml Inj) 1,000 ml @ 100 mls/hr Q10H IV Last administered on 09/22/16 01:35; Start 09/20/16 at 10:45 Albuterol/ Ipratropium 1 ampule 1 ampule Q4HR NEB PRN NEB SHORTNESS OF BREATH; Start 09/20/16 at 10:45 Ceftriaxone Sodium 1000 mg/ Sodium Chloride 100 ml @ 200 mls/hr Q24H IV Last administered on 09/21/16 15:00; Start 09/20/16 at 13:00 Metronidazole (Flagyl 500 Mg Inj) 100 ml @ 100 mls/hr Q8H IV Last administered on 09/22/16 12:47; Start 09/20/16 at 14:00 Pantoprazole Sodium (Protonix Inj) 40 mg DAILY IV PUSH Last administered on 09/22 12:51; Start 09/20/16 at 12:15 Nifedipine (Procardia Xl) 60 mg BID PO Last administered on 09/21/16 21:38; Start 09/20/16 at 21:00 Tizanidine HCl (Zanaflex) 4 mg HS PRN PO MUSCLE SPASM; Start 09/20/16 at 12:15 Enalaprilat (Vasotec Inj) 1.25 mg Q8H PRN IV PUSH SBP> OR = 180, DBP> OR = 100 Last administered on 09/20/16 13:29; Start 09/20/16 at 12:45 Hydromorphone HCl (Dilaudid Pf Inj) 0.5 mg Q4H PRN IV PUSH BREAKTHROUGH PAIN; Start 09/20/16 at 12:45 Acetaminophen/ Hydrocodone Bitart (Cheraw 5-325 Mg) 1 tab Q4H PRN PO PAIN 1-5 Last administered on 09/21/16 10:47; Start 09/20/16 at 12:45 Acetaminophen/ Hydrocodone Bitart (Cheraw 5-325 Mg) 2 tab Q4H PRN PO PAIN 6-10 Last administered on 09/22/16 11:07; Start 09/20/16 at 12:45 Sodium Chloride (NS Flush) 2 ml UNSCH PRN IV FLUSH FLUSH AFTER USING IV ACCESS ; Start 09/20/16 at 13:30 Sodium Chloride (NS Flush) 2 ml BID IV FLUSH Last administered on 09/20/16 20: 37; Start 09/20/16 at 21:00 Flumazenil (Romazicon Inj) 0.2 mg Q1M PRN IV PUSH SEE LABEL COMMENTS; Start 09/20/16 at 13:30 Lorazepam (Ativan) 1 mg Q4H PRN PO CIWA 8 - 10; Start 09/20/16 at 13:30 Lorazepam (Ativan Inj) 1 mg Q4H PRN IV PUSH CIWA 8 - 10; Start 09/20/16 at 13:30 Lorazepam (Ativan) 2 mg Q2H PRN PO CIWA 11-14; Start 09/20/16 at 13:30 Lorazepam (Ativan Inj) 2 mg Q2H PRN IV PUSH CIWA 11-14; Start 09/20/16 at 13:30 Lorazepam (Ativan Inj) 2 mg Q1H PRN IV PUSH CIWA 15-20; Start 09/20/16 at 13:30 Lorazepam (Ativan Inj) 2 mg Q15M PRN IV PUSH CIWA > 20; Start 09/20/16 at 13:30 Potassium Chloride (KCl) 30 meq ONCE ONCE PO Last administered on 09/20/16 16: 48; Start 09/20/16 at 15:45; Stop 09/20/16 at 15:51; Status DC Polyethylene Glycol/ Electrolytes (Colyte Liq) 4,000 ml ONCE ONCE PO Last administered on 09/21/16 10:49; Start 09/21/16 at 09:45; Stop 09/21/16 at 09:46; Status DC Propofol (Diprivan 200 Mg/20 ml Inj) 280 mg STK-MED ONCE IV ; Start 09/21/16 at 10:03; Stop 09/21/16 at 10:04; Status DC Potassium Chloride (KCl) 40 meq ONCE ONCE PO Last administered on 09/21/16t 15: 57; Start 09/21/16 at 14:00; Stop 09/21/16 at 14:01; Status DC Propofol (Diprivan 200 Mg/20 ml Inj) 250 mg STK-MED ONCE IV ; Start 09/22/16 at 10:03; Stop 09/22/16 at 10:28; Status DC A/P Assessment and Plan Abdominal pain macrocytic anemia with ETOH abuse and recent black stools GI consult appreciated - s/p EGD with esophagitis/gastritis and duodenitis- follow the biopsy. s/p colonoscopy with diverticulosis/ internal hemorrhoids CT abdomen reviewed and reveals: 1. Minimal bowel wall thickening and subtle inflammatory changes descending colon 2. There is no diverticulitis 3. Bilateral renal stones without hydronephrosis or pyelonephritis. CTA abdomen pending. continue PPI Patient started on Flagyl and Rocephin Dysphagia with both liquids and solids GI evaluation as noted above. Protonix started Hypokalemia / hypocalcemia/ hypomagnesemia; replaced. Hyperglycemia glucose 62 on admission patient started on D5 with Accu-resolved with no recurrence- Chronic EtOH abuse Patient counseled encouraged to cut down then abstain CIWA protocol with thiamine Monitor closely for signs of withdrawal seizure precautions Tobacco use patient counseled encouraged to abstain Hypertension patient's home nifedipine restarted continue to monitor blood pressure trend SCDs for DVT prophylaxis avoid chemical DVT prophylaxis in light of anemia Discharge Planning GI work-up in progress. case management for [facility]. Melvin Hill MD Sep 22, 2016 13:15
--- NOTE | 2016-09-22 13:16 | HHI.FF ---
Face to Face Verification Diagnosis: (1) Abdominal pain Occupational Therapy Order: Evaluate and Treat I have seen patient Bay Quarles on 09/22/16. My clinical findings support the need for the requested home health care services because: Ltd mobility - disease progression I certify that my clinical findings support that this patient is homebound because: Unsteady gait/balance Melvin Hill MD Sep 22, 2016 13:16
[2016-09-22] MEDS ORDERED: GETGO ROLLING W1 MI1 (13:18)
[2016-09-22] MEDS: cefTRIAXone INJ 1,000 MG in SODIUM CHLORIDE 0.9% INJ 100 ML IV SCH (13:41)
[2016-09-22] MEDS ORDERED: IOHEXOL 350 MG/ML 10 ML VIAL (for RAD DIAG) IV ONE (17:02)
--- NOTE | 2016-09-22 19:13 | MB ---
cc: JOSELUIS COOPER MD DATE OF CONSULTATION 09/22/[address] Olivares REASON FOR CONSULTATION Hematology is consulted to render opinion regarding patient with anemia. HISTORY OF PRESENT ILLNESS The patient is a 71 year old male with multiple medical problems including hepatitis C, pancreatitis, chronic obstructive pulmonary disease, chronic pain who presented to the hospital with complaint of increased abdominal pain. He stated that the pain started about 1-2 weeks ago, is mostly in the lower abdomen and bilateral groin and suprapubic area. He also had nausea and vomiting prior to his presentation. He noticed black stool about a week prior to his presentation. He had history of constipation alternating with loose stool which has not significantly changed. He also has dysphagia and has lost about 10 pounds over the last two months. He denies any fever or chills. He denies any chest pain. He has baseline shortness of breath. Denies any hematuria. PAST MEDICAL HISTORY 1. Hypertension 2. Hyperlipidemia 3. Chronic obstructive pulmonary disease 4. Tobacco abuse 5. Alcohol abuse 6. Pancreatitis 7. Kidney stone 8. Hepatitis C 9. Chronic neck pain 10. Chronic abdominal pain 11. History of H pylori infection with gastritis. 12. Adenomatous polyp PAST SURGICAL HISTORY 1. Hernia repair 2. Resection of vocal cord growth 3. Prostate biopsy 4. Upper endoscopy in 2012 5. Colonoscopy in 2012 6. Small bowel enteroscopy 2012 FAMILY HISTORY Noncontributory SOCIAL HISTORY Smokes a pack a day. He drinks a half a pink of vodka. ALLERGIES NO KNOWN DRUG ALLERGIES MEDICATIONS Current, 1. Nifedipine 2. Metronidazole 3. Ceftriaxone REVIEW OF SYSTEMS CONSTITUTIONAL: As above. EYES: Denies any blurry vision or double vision. ENT: Denied any mouth sores or voice changes CARDIOVASCULAR: Denied chest pressure or palpitation. RESPIRATORY: As above. GASTROINTESTINAL: As above. GENITOURINARY: As above. MUSCULOSKELETAL: Has chronic pain. HEMATOLOGIC: As above. DERMATOLOGIC: Negative ENDOCRINE: Negative PSYCHIATRIC: Negative NEUROLOGIC: Negative PHYSICAL EXAMINATION VITAL SIGNS: Temperature 97.4, blood pressure 120/62. O2 saturation 98%. GENERAL: He is alert and oriented times three in no acute distress. HEENT: Normocephalic, atraumatic. Pupils are equal, round, reactive to light. Extraocular muscles are intact. No scleral icterus. Oropharynx moist mucosa, no lesion, no thrush. No mucositis. NECK: No thyromegaly. No palpable mass. LYMPHATICS: No palpable cervical, clavicular, axillary or inguinal lymph node. CARDIOVASCULAR: Regular S1, S2. No murmur LUNGS: Clear to auscultation bilaterally. No wheezing or rhonchi. ABDOMEN: Soft. A little tender in the lower abdomen. No rebound or rigidity. Positive bowel sounds. EXTREMITIES: No cyanosis, clubbing or edema. SKIN: No rash or petechiae. NEUROLOGIC: Nonfocal. LABORATORY DATA Reviewed. ASSESSMENT 1. Anemia with macrocytosis which appeared to be rather new onset. His hemoglobin in December in 2015 was normal. He reported black stool about a week prior to his presentation. He just had EGD which showed gastritis, duodenitis and esophagitis. Colonoscopy showed diverticulosis but no active bleeding noted. His iron study showed elevated ferritin level but that might be due to underlying liver disease and inflammatory process. His macrocytosis is likely due to underlying disease and alcohol use. He does not have active bleeding noted at this time. His hemoglobin is quite stable. Other differential would include bone marrow disorder, but I think it is less likely. I am going to check a methylmalonic acid level. Recommend monitoring his CBC. If the anemia does not improve after resolution of his GI symptom, we could consider doing a bone marrow biopsy to look for myelodysplastic syndrome. However, this can be done as outpatient. 2. Thrombocytopenia. No chronicity. His platelet count is 119,000. This could be due to underlying liver disease, history of hepatitis C, although CT scan did not show cirrhosis or splenomegaly. This could be also due to consumptive process. We can monitor this for now. He has no active bleeding noted. 3. Hepatitis C. He has not received prior treatment. 4. Chronic abdominal pain. His symptom is a little better. 5. Chronic obstructive pulmonary disease. He still smokes a pack a day. 6. Hypertension 7. Hyperlipidemia RECOMMENDATION 1. Check methylmalonic acid level. 2. Monitor CBC. 3. Can consider bone marrow biopsy if his anemia does not continue to improve. However, this can be done as an outpatient. 4. Need to monitor the ferritin level. Thank you, Dr. Olivares, for asking me to see this patient. Verona Y. Chew, MD [facility]/ /6:30 PM /6:40 PM JANICE
--- NOTE | 2016-09-22 19:58 | RADRPT ---
EXAM DATE/TIME: 09/22/2016 17:02 [facility] COMPARISON: CT ABDOMEN & PELVIS W CONTRAST, September 20, 2016, 9:12. INDICATIONS : Diffuse abdomen pain. IV CONTRAST: 100 cc Omnipaque 350 (iohexol) IV ORAL CONTRAST: No oral contrast ingested. RADIATION DOSE: 4.14 CTDIvol (mGy) MEDICAL HISTORY : Hypertension. Cardiovascular disease Carcinoma, prostate. SURGICAL HISTORY : Hernia repair. ENCOUNTER: Initial ACUITY: 3 days PAIN SCALE: 2/10 LOCATION: Bilateral lower quadrant TECHNIQUE: Volumetric scanning was performed using a multi-row detector CT scanner. The data was post processed with a variety of visualization algorithms including full volume maximum intensity projection, multi -planar sliding thin slab reformation, curved planar reformation, and surface rendering techniques. Using automated exposure control and adjustment of the mA and/or kV according to patient size, radiat ion dose was kept as low as reasonably achievable to obtain optimal diagnostic quality images. DICOM format image data is available electronically for review and comparison. FINDINGS: Diffuse atherosclerotic calcification in the aorta and iliac vessels. ABDOMINAL AORTA: The lumen is smooth without significant narrowing or aneurismal dilation. The proximal celiac and sup erior mesenteric arteries are patent and normal in diameter. There are solitary renal arteries bilat erally without gross abnormality. BIFURCATION: Normal. RIGHT PELVIS: The right common iliac, internal iliac and external iliac vessels are patent without luminal irregula rity. LEFT PELVIS: The left common iliac, internal iliac and external iliac vessels are patent and without luminal irreg ularity. CONCLUSION: Diffuse atherosclerotic calcification. No significant stenosis in the aorta or branch vessels. Edmund Corley MD on September 22, 2016 at 19:54 Board Certified Radiologist. This report was verified electronically.
[2016-09-22] MEDS: SODIUM CHLORIDE 0.9% FLUSH 10 ML FLUSH IV FLUSH SCH (20:14)
[2016-09-23] MEDS: ACETAMINOPHEN/HYDROcodone 325 MG/5 MG TAB PO PRN ×3 (00:31→09:39)
[2016-09-23 02:03] VITALS: BP 117/69; PULSE 109; RESP 18; TEMP 98.1; O2SAT 100
[2016-09-23 04:23] VITALS: BP 143/75; PULSE 91; RESP 18; TEMP 98.5; O2SAT 100
[2016-09-23] MEDS: metroNIDAZOLE 500 MG INJ 100 ML IV SCH (05:13)
--- NOTE | 2016-09-23 07:53 | PD.ONC.PN ---
Subjective Subjective Remarks Afebrile overnight. Patient resting in bed in nad. He is reporting he still has some abdominal pain, "on and off." Requesting pain medication. Objective Data Date Time Temp Pulse Resp B/P Pulse Ox O2 Delivery O2 Flow Rate FiO2 09/23/16 04:23 98.5 91 18 143/75 100 09/23/16 02:03 98.1 109 18 117/69 100 09/22/16 22:04 98.4 99 20 116/74 100 09/22/16 20:14 98 09/22/16 16:42 97.5 100 20 128/62 98 09/22/16 12:29 98.2 100 20 113/64 99 09/22/16 11:20 98.1 97 16 115/68 99 09/22/16 10:50 93 106/69 99 09/22/16 10:45 92 16 104/67 97 09/22/16 10:31 98.5 94 16 113/69 96 09/22/16 07:57 96 Result Diagram: 09/21/16 0746 09/21/16 0746 Administered Medications Medications (Trade) Dose Ordered Sig/Fernanda Route PRN Reason Start Time Stop Time Status Last Admin Dose Admin Dextrose/Sodium Chloride 1,000 ml @ 100 mls/hr Q10H IV 09/20/16 10:45 09/22/16 20:16 Ceftriaxone Sodium 1000 mg/ Sodium Chloride 100 ml @ 200 mls/hr Q24H IV 09/20/16 13:00 09/22/16 13:41 Metronidazole (Flagyl 500 Mg Inj) 100 ml @ 100 mls/hr Q8H IV 09/20/16 14:00 09/23/16 05:13 Pantoprazole Sodium (Protonix Inj) 40 mg DAILY IV PUSH 09/20/16 12:15 09/22/16 12:51 Nifedipine (Procardia Xl) 60 mg BID PO 09/20/16 21:00 09/22/16 20:15 Enalaprilat (Vasotec Inj) 1.25 mg Q8H PRN IV PUSH SBP> OR = 180, DBP> OR = 100 09/20/16 12:45 09/20/16 13:29 Acetaminophen/ Hydrocodone Bitart ([place] 5-325 Mg) 1 tab Q4H PRN PO PAIN 1-5 09/20/16 12:45 09/21/16 10:47 Acetaminophen/ Hydrocodone Bitart ([place] 5-325 Mg) 2 tab Q4H PRN PO PAIN 6-10 09/20/16 12:45 09/23/16 05:13 Sodium Chloride (NS Flush) 2 ml BID IV FLUSH 09/20/16 21:00 09/20/16 20:37 Objective Remarks GENERAL: Elderly male supine in bed watching TV in nad. SKIN: Warm and dry. HEAD: Normocephalic. EYES: No injection or drainage. NECK: Supple, trachea midline. CARDIOVASCULAR: Regular rate and rhythm RESPIRATORY: Breath sounds equal bilaterally. No accessory muscle use. GASTROINTESTINAL: Abdomen soft, non-tender, nondistended. EXTREMITIES: No cyanosis NEUROLOGICAL: No obvious focal deficit. Awake, alert, and oriented x3. Assessment/Plan Problem List: (1) Macrocytic anemia Status: Acute Plan: --Anemia with macrocytosis which appeared to be rather new onset. --hemoglobin in December in 2015 was normal. --reported black stool about a week prior to his presentation. --EGD showed gastritis, duodenitis and esophagitis. --Colonoscopy showed diverticulosis but no active bleeding noted. iron study showed elevated ferritin level but that might be due to underlying liver disease and inflammatory process. --macrocytosis is likely due to underlying disease and alcohol use. does not have active bleeding noted at this time. Other differential would include bone marrow disorder, but I think it is less likely. --methylmalonic acid level pending --If the anemia does not improve after resolution of his GI symptom, we could consider doing a bone marrow biopsy to look for myelodysplastic syndrome. (can be done as outpatient.) (2) Thrombocytopenia Status: Acute Plan: --No chronicity. His platelet count is 119,000. --could be due to underlying liver disease, history of hepatitis C, although CT scan did not show cirrhosis or splenomegaly. --could be also due to consumptive process. We can monitor this for now. has no active bleeding noted. Assessment 71y/o male admitted with abdominal pain. Hematology consulted for anemia. h/o Hypertension. Hyperlipidemia. Chronic obstructive pulmonary disease. Tobacco abuse. Alcohol abuse Pancreatitis. Kidney stone. Hepatitis C. Chronic neck pain. Chronic abdominal pain History of H pylori infection with gastritis. Adenomatous polyp Hernia repair. Resection of vocal cord growth. Prostate biopsy. Upper endoscopy in 2013. Colonoscopy in 2012. Small bowel enteroscopy 2012 Plan 1. await CBC today 2. await MMA level 3. supportive care Attending Statement The exam, history, and the medical decision-making described in the above note were completed with the assistance of the mid-level provider. I reviewed and agree with the findings presented. I attest that I had a [id number] encounter with the patient on the same day, and personally performed and documented my assessment and findings in the medical record. Feeling better. Hgb trended up. F/u hematology clinic. Cynthia Smith Sep 23, 2016 07:53 Gilbert Ovalle MD Sep 23, 2016 12:51
[2016-09-23 08:33] VITALS: BP 121/68; PULSE 95; RESP 20; TEMP 98.2; O2SAT 95
[2016-09-23] MEDS: SODIUM CHLORIDE 0.9% FLUSH 10 ML FLUSH IV FLUSH SCH (09:00)
[2016-09-23] MEDS: NIFEdipine 60 MG SUSTAINED RELEASE TAB PO SCH (09:39)
[2016-09-23] MEDS: PANTOPRAZOLE SODIUM 40 MG VIAL IV PUSH SCH (09:40)
[2016-09-23] MEDS: DEXT 5%-NACL 0.9% 1000 ML INJ 1,000 ML IV SCH (09:41)
[2016-09-23 10:48] VITALS: PULSE 83
--- NOTE | 2016-09-23 10:57 | HHI.GIFU ---
Subjective Remarks Patient resting in bed, watching TV, had soft BM this morning, states, it was black in color, was sent to the lab. States " I don't understand why I have bilateral lower abd pain sometimes" No nausea or vomiting, no hematochezia ( Charisse Kang) Objective Vitals I&O Vital Signs Date Time Temp Pulse Resp B/P Pulse Ox O2 Delivery O2 Flow Rate FiO2 09/23/16 08:33 98.2 95 20 121/68 95 09/23/16 04:23 98.5 91 18 143/75 100 09/23/16 02:03 98.1 109 18 117/69 100 09/22/16 22:04 98.4 99 20 116/74 100 09/22/16 20:14 98 09/22/16 16:42 97.5 100 20 128/62 98 09/22/16 12:29 98.2 100 20 113/64 99 09/22/16 11:20 98.1 97 16 115/68 99 09/22/16 10:50 93 106/69 99 09/22/16 10:45 92 16 104/67 97 I/O 09/22/16 09/22/16 09/22/16 09/23/16 09/23/16 09/23/16 07:00 15:00 23:00 07:00 15:00 23:00 Intake Total 240 ml 1114 ml 219 ml Output Total 600 ml 500 ml 630 ml Balance -600 ml -260 ml 484 ml 219 ml Intake Oral 240 ml IV Total 1114 ml 219 ml Output Urine Total 600 ml 500 ml 630 ml # Voids 1 # Bowel Movements 0 1 Imaging Last Impressions Abdomen/Pelvis CT 09/21/16 0000 Signed Impressions: Service Date/Time: Thursday, September 22, 2016 17:02 - CONCLUSION: Diffuse atherosclerotic calcification. No significant stenosis in the aorta or branch vessels. Edmund Corley MD Chest X-Ray 09/20/16 0607 Signed Impressions: Service Date/Time: Tuesday, September 20, 2016 06:16 - CONCLUSION: Emphysematous changes of the lungs. Otherwise negative exam. Elizabeth Cruz MD Physical Exam HEENT: normocephalic; atraumatic; no jaundice. NECK: Neck is supple, no JVD, no lymphadenopathy. CHEST: Chest is clear to auscultation and percussion. CARDIAC: Regular rate and rhythm with no murmur gallop or rubs. ABDOMEN: Soft, nondistended,lower abd tenderness; no hepatosplenomegaly; bowel sounds are present in all four quadrants. EXTREMITIES: No clubbing, cyanosis, or edema. SKIN: Normal; no rash; no jaundice. WORKING SUPERVISOR: No focal deficits; alert and oriented times three. (Charisse Kang) Assessment and Plan Plan ASSESSMENT: - Melena. C/O one week history of black tarry stool. EGD/dill/enteroscopy on ( 09/21/16)----> gastritis, duodenitis, polyp/Jeanette ink tattoo in proximal jejunum, esophagitis, spasm distal esophagus, hiatal hernia. BX Adenomatous polyp in jejunum, Duodenum bx showed Vanessa's gland hyperplasia, stomach showed gastritis with non specific features and intestinal metaplasia, no h-pylori, esophagus showed mild active chronic inflammation. Colonoscopy on (09/22/16) -----> internal hemorrhoids, and diverticulosis , Bx pending Abdomen/Pelvis CTA 09/21/16 Diffuse atherosclerotic calcification. No significant stenosis in the aorta or branch vessels. Abdomen/Pelvis CT (09/20/16)----> 1. Minimal bowel wall thickening and subtle inflammatory changes descending colon 2. There is no diverticulitis 3. Bilateral renal stones without hydronephrosis or pyelonephritis. - Anemia secondary to acute blood loss. H&H on 09/21 8.4/24.5 Iron 158, TIBC 358, iron saturation 44.1, ferritin 1388. Hematology following - Dysphagia. Difficulty swallowing both liquids and solids, with these getting caught in upper esophagus. S/P EGD/dill as above - Decreased appetite with nausea and vomiting. No hematemesis. Patient reports that he has been having intermittent nausea and vomiting with decreased appetite For 3-4 months. His weight fluctuates between 122 and 1:30 pounds and he states he is currently at 122 pounds. Abdomen/Pelvis CT (09/20/16)----> 1. Minimal bowel wall thickening and subtle inflammatory changes descending colon 2. There is no diverticulitis 3. Bilateral renal stones without hydronephrosis or pyelonephritis. He does have a history of pancreatitis. He continues to drink alcohol. - Alternating constipation and diarrhea. States he will not move his bowels for 10 days and takes stool softeners and that when he does finally go, he will have diarrhea x 1 week. Last colonoscopy 2012 as above. - Abn. CT with minimal bowel wall thickening and subtle inflammatory changes descending colon. Denies recent antibiotic use, travel, suspicious food, sick contacts. He is on Flagyl - Lower abdominal pain- seems to be more suprapubic, bilateral inguinal pain. He states that his pain is more related to urination and movement. He also reports that he was having difficulty urinating last week, although he is now avoiding without problems. He denies any hematuria although he does complain of his urine "thick and yellow" U/A unremarkable. - History adenomatous polyps of the jejunum. enteroscopy as above - Difficulty urinating with bilateral renal stones on CT, improved. Per attending. - Electrolyte abnormalities, COPD, HTN, per attending. PLAN: - CANDICE - Okay to DC from GI stand point - F/u with GI in 2 weeks - Hematology following - Continue Flagyl - Continue Protonix - Await Stool studies for C. difficile, C/S, Giardia, O&P - Supportive care - PT seen and examined by Dr. Olivares and myself and this note is written on her behalf (Charisse Kang) Physician Comments fu office capsule endoscopy will need enteroscopy with polyp removal depending on path report avoid etoh (Evelina Olivares MD) Charisse Kang Sep 23, 2016 10:57 Evelina Olivares MD Sep 23, 2016 15:34
--- NOTE | 2016-09-23 11:05 | HHI.PR ---
Subjective Remarks resting comfortably with no distress. denies pain, nausea or vomiting. d/w the RN and no acute issues over night. Objective Vitals Vital Signs Date Time Temp Pulse Resp B/P Pulse Ox O2 Delivery O2 Flow Rate FiO2 09/23/16 10:48 83 09/23/16 08:33 98.2 95 20 121/68 95 09/23/16 04:23 98.5 91 18 143/75 100 09/23/16 02:03 98.1 109 18 117/69 100 09/22/16 22:04 98.4 99 20 116/74 100 09/22/16 20:14 98 09/22/16 16:42 97.5 100 20 128/62 98 09/22/16 12:29 98.2 100 20 113/64 99 09/22/16 11:20 98.1 97 16 115/68 99 I/O 09/22/16 09/22/16 09/22/16 09/23/16 09/23/16 09/23/16 07:00 15:00 23:00 07:00 15:00 23:00 Intake Total 240 ml 1114 ml 219 ml Output Total 600 ml 500 ml 630 ml Balance -600 ml -260 ml 484 ml 219 ml Intake Oral 240 ml IV Total 1114 ml 219 ml Output Urine Total 600 ml 500 ml 630 ml # Voids 1 # Bowel Movements 0 1 Result Diagram: 09/21/16 0746 09/21/16 0746 Imaging Last Impressions Abdomen/Pelvis CT 09/21/16 0000 Signed Impressions: Service Date/Time: Thursday, September 22, 2016 17:02 - CONCLUSION: Diffuse atherosclerotic calcification. No significant stenosis in the aorta or branch vessels. Edmund Corley MD Chest X-Ray 09/20/16 0607 Signed Impressions: Service Date/Time: Tuesday, September 20, 2016 06:16 - CONCLUSION: Emphysematous changes of the lungs. Otherwise negative exam. Elizabeth Cruz MD Objective Remarks GENERAL: This is a well-nourished, well-developed patient, in no apparent distress. CARDIOVASCULAR: Regular rate and regular rhythm without murmurs, gallops, or rubs. RESPIRATORY: Clear to auscultation. Breath sounds equal bilaterally. No wheezes , rales, or rhonchi. GASTROINTESTINAL: Abdomen soft, non-tender, nondistended. Normal, active bowel sounds MUSCULOSKELETAL: Extremities without clubbing, cyanosis, or edema. NEURO: Alert & Oriented x4 to person, place, time, situation. Moves all ext x4 Procedures EGD/ colonoscopy. Medications and IVs Current Medications Sodium Chloride (NS Flush) 2 ml UNSCH PRN IVF FLUSH AFTER USING IV ACCESS; Start 09/20/16 at 06:15 Albuterol/ Ipratropium 1 ampule 1 ampule ONCE ONCE INH Last administered on 06:35; Start 09/20/16 at 06:15; Stop 09/20/16 at 06:16; Status DC Sodium Chloride (NS 500 ml Inj) 500 ml @ 500 mls/hr BOLUS ONCE IV Last administered on 09/20/16 07:59; Start 09/20/16 at 07:30; Stop 09/20/16 at 08:29; Status DC Morphine Sulfate (Morphine Inj) 4 mg ONCE ONCE IV PUSH Last administered on 08:00; Start 09/20/16 at 07:30; Stop 09/20/16 at 07:31; Status DC Ondansetron HCl 4 mg 4 mg ONCE ONCE IV PUSH Last administered on 09/20/16 08: 00; Start 09/20/16 at 07:30; Stop 09/20/16 at 07:31; Status DC Thiamine HCl/ Sodium Chloride (Thiamine Inj/NS Inj) 101 ml @ 101 mls/hr ONCE ONCE IV Last administered on 09/20/16 07:59; Start 09/20/16 at 07:30; Stop at 08:29; Status DC Potassium Chloride 40 meq 40 meq ONCE ONCE PO Last administered on 09/20/16 08 :00; Start 09/20/16 at 07:30; Stop 09/20/16 at 07:31; Status DC Sodium Chloride (NS 1000 ml Inj) 1,000 ml @ 999 mls/hr BOLUS ONCE IV Last administered on 09/20/16 09:00; Start 09/20/16 at 08:45; Stop 09/20/16 at 09:45; Status DC Iohexol 85 ml 85 ml STK-MED ONCE IV Last administered on 09/20/16 09:38; Start 09/20/16 at 09:38; Stop 09/20/16 at 09:39; Status DC Calcium Chloride 1 gm/Dextrose 110 ml @ 110 mls/hr ONCE ONCE IV Last administered on 09/20/16 10:24; Start 09/20/16 at 10:15; Stop 09/20/16 at 11:14; Status DC Magnesium Sulfate/ Dextrose 100 ml @ 100 mls/hr Q1H IV Last administered on 12:28; Start 09/20/16 at 10:15; Stop 09/20/16 at 12:14; Status DC Dextrose/Sodium Chloride (D5W-NS 1000 ml Inj) 1,000 ml @ 100 mls/hr Q10H IV Last administered on 09/23/16 09:41; Start 09/20/16 at 10:45 Albuterol/ Ipratropium 1 ampule 1 ampule Q4HR NEB PRN NEB SHORTNESS OF BREATH; Start 09/20/16 at 10:45 Ceftriaxone Sodium 1000 mg/ Sodium Chloride 100 ml @ 200 mls/hr Q24H IV Last administered on 09/22/16 13:41; Start 09/20/16 at 13:00 Metronidazole (Flagyl 500 Mg Inj) 100 ml @ 100 mls/hr Q8H IV Last administered on 09/23/16 05:13; Start 09/20/16 at 14:00 Pantoprazole Sodium (Protonix Inj) 40 mg DAILY IV PUSH Last administered on 09/23 09:40; Start 09/20/16 at 12:15 Nifedipine (Procardia Xl) 60 mg BID PO Last administered on 09/23/16 09:39; Start 09/20/16 at 21:00 Tizanidine HCl (Zanaflex) 4 mg HS PRN PO MUSCLE SPASM; Start 09/20/16 at 12:15 Enalaprilat (Vasotec Inj) 1.25 mg Q8H PRN IV PUSH SBP> OR = 180, DBP> OR = 100 Last administered on 09/20/16 13:29; Start 09/20/16 at 12:45 Hydromorphone HCl (Dilaudid Pf Inj) 0.5 mg Q4H PRN IV PUSH BREAKTHROUGH PAIN; Start 09/20/16 at 12:45 Acetaminophen/ Hydrocodone Bitart ([place] 5-325 Mg) 1 tab Q4H PRN PO PAIN 1-5 Last administered on 09/21/16 10:47; Start 09/20/16 at 12:45 Acetaminophen/ Hydrocodone Bitart ([place] 5-325 Mg) 2 tab Q4H PRN PO PAIN 6-10 Last administered on 09/23/16 09:39; Start 09/20/16 at 12:45 Sodium Chloride (NS Flush) 2 ml UNSCH PRN IV FLUSH FLUSH AFTER USING IV ACCESS ; Start 09/20/16 at 13:30 Sodium Chloride (NS Flush) 2 ml BID IV FLUSH Last administered on 09/23/16 09: 00; Start 09/20/16 at 21:00 Flumazenil (Romazicon Inj) 0.2 mg Q1M PRN IV PUSH SEE LABEL COMMENTS; Start 09/20/16 at 13:30 Lorazepam (Ativan) 1 mg Q4H PRN PO CIWA 8 - 10; Start 09/20/16 at 13:30 Lorazepam (Ativan Inj) 1 mg Q4H PRN IV PUSH CIWA 8 - 10; Start 09/20/16 at 13:30 Lorazepam (Ativan) 2 mg Q2H PRN PO CIWA 11-14; Start 09/20/16 at 13:30 Lorazepam (Ativan Inj) 2 mg Q2H PRN IV PUSH CIWA 11-14; Start 09/20/16 at 13:30 Lorazepam (Ativan Inj) 2 mg Q1H PRN IV PUSH CIWA 15-20; Start 09/20/16 at 13:30 Lorazepam (Ativan Inj) 2 mg Q15M PRN IV PUSH CIWA > 20; Start 09/20/16 at 13:30 Potassium Chloride (KCl) 30 meq ONCE ONCE PO Last administered on 09/20/16 16: 48; Start 09/20/16 at 15:45; Stop 09/20/16 at 15:51; Status DC Polyethylene Glycol/ Electrolytes (Colyte Liq) 4,000 ml ONCE ONCE PO Last administered on 09/21/16 10:49; Start 09/21/16 at 09:45; Stop 09/21/16 at 09:46; Status DC Propofol (Diprivan 200 Mg/20 ml Inj) 280 mg STK-MED ONCE IV ; Start 09/21/16 at 10:03; Stop 09/21/16 at 10:04; Status DC Potassium Chloride (KCl) 40 meq ONCE ONCE PO Last administered on 09/21/16t 15: 57; Start 09/21/16 at 14:00; Stop 09/21/16 at 14:01; Status DC Propofol (Diprivan 200 Mg/20 ml Inj) 250 mg STK-MED ONCE IV ; Start 09/22/16 at 10:03; Stop 09/22/16 at 10:28; Status DC A/P Assessment and Plan Abdominal pain macrocytic anemia with ETOH abuse and recent black stools GI consult appreciated - s/p EGD with esophagitis/gastritis and duodenitis- follow the biopsy. s/p colonoscopy with diverticulosis/ internal hemorrhoids CT abdomen reviewed and reveals: 1. Minimal bowel wall thickening and subtle inflammatory changes descending colon 2. There is no diverticulitis 3. Bilateral renal stones without hydronephrosis or pyelonephritis. CTA abdomen with no significant stenosis. continue PPI d/w GI today and patient was cleared for discharge. was evaluated by hematology- f/u as outpatient. Dysphagia with both liquids and solids GI evaluation as noted above. Protonix started Hypokalemia / hypocalcemia/ hypomagnesemia; replaced. Hyperglycemia glucose 62 on admission patient started on D5 with Accu-resolved with no recurrence- Chronic EtOH abuse Patient counseled encouraged to cut down then abstain CIWA protocol with thiamine Monitor closely for signs of withdrawal seizure precautions Tobacco use patient counseled encouraged to abstain Hypertension patient's home nifedipine restarted continue to monitor blood pressure trend SCDs for DVT prophylaxis avoid chemical DVT prophylaxis in light of anemia Discharge Planning dc home with [facility]. f/u; pcp and GI. see med list. d/w the patient and RN. d/w GI. Melvin Hill MD Sep 23, 2016 11:05
[2016-09-23] MEDS ORDERED: PROT40TA PO (11:06)
--- NOTE | 2016-09-23 11:07 | HHI.DCPOC ---
Discharge Care Plan Diagnosis: (1) Anemia Additional Problems anemia Goals to Promote Your Health * To prevent worsening of your condition and complications * To maintain your health at the optimal level Directions to Meet Your Goals Take your medications as prescribed Follow your dietary instruction Follow activity as directed Keep your appointments as scheduled Take your immunizations and boosters as scheduled If your symptoms worsen call your PCP, if no PCP go to Urgent Care Center or Emergency Room Smoking is Dangerous to Your Health. Avoid second hand smoke Call the 24-hour hour crisis hotline for domestic abuse at Melvin Hill MD Sep 23, 2016 11:07
--- NOTE | 2016-09-23 11:07 | HHI.DS ---
Discharge Summary Admission Date Sep 20, 2016 at 10:41 Discharge Date: Sep 23, 2016 Admitting Diagnosis failure to thrive, hyponatremic dehydration, multiple electrolyte (1) Anemia ICD Code: D64.9 Diagnosis: Principal Procedures EGD/ colonoscopy. Brief History - From Admission Written by Kandice Martinez, acting as scribe for Dr. Hill on 09/20/16 at 12:06. This is a 71 year male patient with a past medical history which includes hypertension, hyperlipidemia, COPD, tobacco abuse, alcohol abuse, history of chronic neck pain follows with pain management, history of chronic abdominal pain. Patient complains of, "real bad abdominal pain." Patient reports he had hernia surgery about 1.5 years ago and since then has had abdominal pain. Patient reports that the pain is worse, "here lately," patient unable to give exact time at bedside report about 1.5 weeks. Patient describes the pain as constant but waxes and wanes in intensity. The patient indicates that the pain is located in bilateral lower quadrants of the abdomen in the suprapubic area. Pain worse with lifting. reports associated nausea and vomiting over the past 1.5 weeks. Vomiting as much as 2-3 times per day. Patient reports specs of blood mixed in the vomitus material. Stool varies between constipation and diarrhea. Patient endorses black colored stool about 1 week ago. Patient has never had a EGD or colonoscopy. Patient also reports difficulty swallowing described as feeling of swelling in the inside of his throat. Difficulty swallowing occurs with both liquids and solids and has been going on for 1-2 months. Patient has lost 5- 10 pounds over the past month. He reports PO intake is limited by his abdominal pain and difficult swallowing. Patient also reports shortness of breath which appears to be at his baseline due to his chronic COPD. Patient also c/o of chronic neck and back pain for which he see pain management as an outpatient, but is upset that they do not give him the, "meds he needs." CBC/BMP: 09/21/16 0746 09/21/16 0746 Significant Findings Laboratory Tests Test 09/20/16 09/21/16 13:17 07:46 Potassium Level 3.3 MEQ/L 3.3 MEQ/L (3.5-5.1) (3.5-5.1) Chloride Level 109 MEQ/L 109 MEQ/L (98-107) (98-107) Estimat Glomerular Filtration 67 ML/MIN (>89) 68 ML/MIN (>89) Rate Ferritin 1388 NG/ML (26-388) Red Blood Count 2.44 MIL/MM3 (4.50-5.90) Hemoglobin 8.4 GM/DL (13.0-17.0) Hematocrit 24.5 % (39.0-51.0) Mean Corpuscular Volume 100.6 FL (80.0-100.0) Mean Corpuscular Hemoglobin 34.4 PG (27.0-34.0) Platelet Count 119 TH/MM3 (150-450) Monocytes (%) (Auto) 11.5 % (0.0-8.0) Platelet Estimate LOW (NORMAL) Imaging Last Impressions Abdomen/Pelvis CT 09/21/16 0000 Signed Impressions: Service Date/Time: Thursday, September 22, 2016 17:02 - CONCLUSION: Diffuse atherosclerotic calcification. No significant stenosis in the aorta or branch vessels. Edmund Corley MD Chest X-Ray 09/20/16 0607 Signed Impressions: Service Date/Time: Tuesday, September 20, 2016 06:16 - CONCLUSION: Emphysematous changes of the lungs. Otherwise negative exam. Elizabeth Cruz MD PE at Discharge GENERAL: This is a well-nourished, well-developed patient, in no apparent distress. CARDIOVASCULAR: Regular rate and regular rhythm without murmurs, gallops, or rubs. RESPIRATORY: Clear to auscultation. Breath sounds equal bilaterally. No wheezes , rales, or rhonchi. GASTROINTESTINAL: Abdomen soft, non-tender, nondistended. Normal, active bowel sounds MUSCULOSKELETAL: Extremities without clubbing, cyanosis, or edema. NEURO: Alert & Oriented x4 to person, place, time, situation. Moves all ext x4 Hospital Course Abdominal pain macrocytic anemia with ETOH abuse and recent black stools GI consult appreciated - s/p EGD with esophagitis/gastritis and duodenitis- follow the biopsy. s/p colonoscopy with diverticulosis/ internal hemorrhoids CT abdomen reviewed and reveals: 1. Minimal bowel wall thickening and subtle inflammatory changes descending colon 2. There is no diverticulitis 3. Bilateral renal stones without hydronephrosis or pyelonephritis. CTA abdomen with no significant stenosis. continue PPI d/w GI today and patient was cleared for discharge. was evaluated by hematology- f/u as outpatient. Dysphagia with both liquids and solids GI evaluation as noted above. Protonix started Hypokalemia / hypocalcemia/ hypomagnesemia; replaced. Hyperglycemia glucose 62 on admission patient started on D5 with Accu-resolved with no recurrence- Chronic EtOH abuse Patient counseled encouraged to cut down then abstain CIWA protocol with thiamine Monitor closely for signs of withdrawal seizure precautions Tobacco use patient counseled encouraged to abstain Hypertension patient's home nifedipine restarted continue to monitor blood pressure trend SCDs for DVT prophylaxis avoid chemical DVT prophylaxis in light of anemia Pt Condition on Discharge: Good Discharge Disposition: Disch w/ Home Health Serv Discharge Time: <= 30 minutes Discharge Instructions DIET: Follow Instructions for: Heart Healthy Diet Activities you can perform: Regular-No Restrictions Follow up Referrals: Gastroenterology PCP Follow-up New Medications: Metronidazole (Flagyl) 500 Mg Tab 500 MG PO TID Infection Days 7 Ref 0 TAB Pantoprazole (Protonix) 40 Mg Tab 40 MG PO DAILY Reflux #30 Ref 0 TAB Walker Rolling/GetGo (Walker Rolling/GetGo) 1 Mis Mis 1 EA .ROUTE DIRECTED #1 EA Continued Medications: Nifedipine ER 24 HR (Nifedipine ER 24 HR) 60 Mg Tab 60 MG PO BID #30 Ref 0 TAB Tizanidine (Tizanidine) 4 Mg Tab 4 MG PO HS PRN Muscle Spasm Ref 0 TAB ([water pill]) Melvin Hill MD Sep 23, 2016 11:07
--- NOTE | 2016-09-23 11:53 | HHI.FF ---
Face to Face Verification Diagnosis: (1) Anemia Physical Therapy Order: Evaluate and Treat Occupational Therapy Order: Evaluate and Treat Home Health Nursing Order: Medical education Signs/symptoms of disease process Medication education-adverse effect Nursing assessment with vital signs I have seen patient Bay Quarles on 09/23/16. My clinical findings support the need for the requested home health care services because: Ltd mobility - disease progression I certify that my clinical findings support that this patient is homebound because: Unsteady gait/balance Melvin Hill MD Sep 23, 2016 11:52
[2016-09-23] MEDS ORDERED: METR-1 PO (11:54)
[2016-09-23 12:24] VITALS: BP 129/66; PULSE 90; RESP 20; TEMP 97.8; O2SAT 100
[2016-09-23 12:29] LABS: AUTOMATED NEUTROPHIL # 4.2 TH/MM3 (1.8-7.7); BASOPHIL % 0.6 % (0.0-2.0); EOSINOPHIL # 0.1 TH/MM3 (0-0.4); HEMATOCRIT 26.2 % (39.0-51.0); HEMO FLAGS DIFF FINAL; LYMPH % 17.6 % (9.0-44.0); LYMPHOCYTE # 1.1 TH/MM3 (1.0-4.8); MEAN CELL VOLUME 102.3 FL (80.0-100.0); MEAN CORPUSCULAR HEMOGLOBIN 35.5 PG (27.0-34.0); MEAN CORPUSCULAR HGB CONC 34.7 % (32.0-36.0); MONO % 11.9 % (0.0-8.0); NEUT % 67.9 % (16.0-70.0); PLATELET COUNT 158 TH/MM3 (150-450); RED BLOOD COUNT 2.56 MIL/MM3 (4.50-5.90); WHITE BLOOD COUNT 6.1 TH/MM3 (4.0-11.0)
[2016-09-23 13:01] LABS: BICARBONATE 20.9 MEQ/L (21.0-32.0); POTASSIUM 3.1 MEQ/L (3.5-5.1)
== END 2016-09-23 13:02 | disposition home health service (06) | DRG 812 ==
LOC: NEPE 05:04 → NEDA 10:41 → N05A 12:17
PROVIDERS: ADMIT Internal Medicine; ATTEND Internal Medicine
PROC: 0DB38ZX Excision of Lower Esophagus, Via Natural or Artificial Opening Endoscopic, Diagnostic (ICD-10-PCS; 2016-09-21)
PROC: 0DB78ZX Excision of Stomach, Pylorus, Via Natural or Artificial Opening Endoscopic, Diagnostic (ICD-10-PCS; 2016-09-21)
PROC: 0DBA8ZX Excision of Jejunum, Via Natural or Artificial Opening Endoscopic, Diagnostic (ICD-10-PCS; 2016-09-21)
PROC: 0D748ZZ Dilation of Esophagogastric Junction, Via Natural or Artificial Opening Endoscopic (ICD-10-PCS; principal; 2016-09-21 09:15)
PROC: 0DBM8ZX Excision of Descending Colon, Via Natural or Artificial Opening Endoscopic, Diagnostic (ICD-10-PCS; 2016-09-22)
DX: D53.9 Nutritional anemia, unspecified (principal); E87.0 Hyperosmolality and hypernatremia; D69.6 Thrombocytopenia, unspecified; J44.9 Chronic obstructive pulmonary disease, unspecified; E87.1 Hypo-osmolality and hyponatremia; E83.42 Hypomagnesemia; K92.1 Melena; E86.0 Dehydration; E83.51 Hypocalcemia; R13.10 Dysphagia, unspecified; I10 Essential (primary) hypertension; R62.7 Adult failure to thrive; E78.5 Hyperlipidemia, unspecified; G89.29 Other chronic pain; N20.0 Calculus of kidney; E87.6 Hypokalemia; R73.9 Hyperglycemia, unspecified; K29.80 Duodenitis without bleeding; K21.9 Gastro-esophageal reflux disease without esophagitis; K44.9 Diaphragmatic hernia without obstruction or gangrene; M50.30 Other cervical disc degeneration, unspecified cervical region; K21.0 Gastro-esophageal reflux disease with esophagitis; K29.50 Unspecified chronic gastritis without bleeding; B19.20 Unspecified viral hepatitis C without hepatic coma; K22.4 Dyskinesia of esophagus; K57.30 Diverticulosis of large intestine without perforation or abscess without bleeding; K64.8 Other hemorrhoids; F10.10 Alcohol abuse, uncomplicated; F17.210 Nicotine dependence, cigarettes, uncomplicated
CPT/HCPCS: 36600; 71010; 74174; 74177; 76937; 80048; 80053; 81001; 82550; 82552; 82607; 82728; 82746; 82805; 82948; 83540; 83550; 83735; 83880; 83921; 84484; 85025; 85610; 85730; 88305; 88312; 93005; 94664; 96361; 96365; 96375; C1769; C9113; J0696; J2270; J2405; J3411; J3475; J7030; J7040; J7042; Q9967